=== PATIENT | female | born 2005 | race Caucasian/White ===

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

== ENCOUNTER 2024-12-31 14:38 | Outpatient (CLI) | payer MEDICAID, SELFPAY ==
--- OUTSIDE RECORDS SUMMARY | 2024-12-02 13:00 | XMS_ITS | Encounter Summary ---
Author Organization Healthcare Address [address] [place] [address] Care Team Providers Care Bottle Sorter Name Role Phone Linnea Ramirez APRN Primary Care Provider [phone] Reason for Visit * Reason Comments Confirmation of Here to discus s possible . Had a period on 10/17/24 and had spotting on 11/15 and 11/16. Encounter Details Date Type Department Care Team (Late st Contact Info) Description 12/02/2024 1:00 PM EDT Office Visit Obstetrics & Gynecology [address] [place] [address] Alexsandra Berrios APRN, DNP [address] [place] [address] Irregular menstruation, unspecified (Primary Dx); Family planning education, guidance, and counseling Social History Tobacco Use Types Packs/Day Years Used Date Smoking Tobacco: Never Passive Smoke Exposure: Never Smokeless Tobacco: Never Tobacco Cessation:Counseling Given: Not Answered Alcohol Use Standard Drinks/Week Comments Never 0 (1 standard drink = 0.6 oz pur e alcohol) Humiliation, Afraid, Rape, and Kick questionnair e Answer Date Recorded Within the last year, have y ou been afraid of your partner or ex-partner? No 07/22/2024 Within the last year, have y ou been humiliated or emotionally abused in other ways by your partner or ex-partner? No Within the last year, have y ou been kicked, hit, slapped, or otherwise physically hurt by your partner or ex-partner? No 07/22/2024 Within the last year, have y ou been raped or forced to have any kind of sexual activity by your partner or ex-partner? No 07/22/2024 Social Connection and Isolation Panel Answer Date Recorded In a typical week, how many times do you talk on the phone with family, friends, or neighbors? More than three times a week 02/12/2024 How often do you get togethe r with friends or relatives? More than three times a week 02/12/2024 How often do you attend chur or scientologist services? Never 02/12/2024 Do you belong to any clubs o r organizations such as muslim groups, unions, fraternal or athletic groups, or school groups? No 02/12/2024 How often do you attend meet ings of the clubs or organizations you belong to? Never 02/12/2024 Are you , , di vorced, , never , or living with a partner? Never 02/12/2024 AUDIT-C Answer Date Recorded Q1: How often do you have a drink containing alcohol? Never 02/12/2024 Q2: How many drinks containi ng alcohol do you have on a typical day when you are drinking? Patient does not drink Q3: How often do you have si x or more drinks on one occasion? Never 02/12/2024 Overall Financial Resource Strain (CARDIA) Answe r Date Recorded How hard is it for you to pa y for the very basics like food, housing, medical care, and heating? Not hard at all 02/12/2024 PHQ-2 Answer Date Recorded Patient Health Questionnaire-2 Score 0 12/02/2024 [facility] - Occupational Stress Questionnaire Answer Date Recorded Do you feel stress - tense, restless, nervous, or anxious, or unable to sleep at night because your mind is troubled all the time - these days? Not at all 02/12/2024 Exercise Vital Sign Answer Date Recorde d On average, how many days pe r week do you engage in moderate to strenuous exercise (like a brisk walk)? 3 days 02/12/2024 On average, how many minutes do you engage in exercise at this level? 30 min 02/12/2024 Hunger Vital Sign Answer Date Recorded Within the past 12 months, y ou worried that your food would run out before you got the money to buy more. Never true 07/22/19 25 Within the past 12 months, t he food you bought just didn't last and you didn't have money to get more. Never true 07/22/2024 PRAPARE - Transportation Answer Date Re corded In the past 12 months, has l ack of transportation kept you from medical appointments or from getting medications? No 10/2024 In the past 12 months, has l ack of transportation kept you from meetings, work, or from getting things needed for daily living? No 07/22/2024 Housing Stability Vital Sign Answer Facundo e Recorded In the last 12 months, was t here a time when you were not able to pay the mortgage or rent on time? No 01/21/2024 In the last 12 months, how many places have you lived? 1 01/21/2024 In the last 12 months, was t here a time when you did not have a steady place to sleep or slept in a assisted (including now)? No 01/21/2024 PHQ-9 Answer Date Recorded Patient Health Questionnaire-9 Score 1 08/06/2024 Housing Stability Vital Sign Answer Facundo e Recorded In the last 12 months, was t here a time when you were not able to pay the mortgage or rent on time? No 07/22/2024 In the past 12 months, how m any times have you moved where you were living? 0 07/22/2024 At any time in the past [address] [facility], were you homeless or living in a assisted (including now)? No 07/22/2024 Utilities Answer Date Recorded In the past 12 months has th e electric, gas, oil, or water company threatened to shut off services in your home? 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 Not on file Not on file Not on file documented as of this encounter Last Filed Vital Signs Vital Sign Reading Time Taken Comments Blood Pressure 112/74 12/02/2024 1:08 PM EDT Pulse 68 12/02/2024 1:08 PM EDT Temperature 36.9 C (98.4 F) 12/02/2024 1:08 PM EDT Respiratory Rate 14 12/02/2024 1:08 PM EDT Oxygen Saturation 100% 12/02/2024 1:08 PM EDT Inhaled Oxygen Concentration - - Weight 69.3 kg (152 lb 12.5 oz) 12/02/2024 1:08 PM EDT Height 162.6 cm (5' 4 ) 12/02/2024 1:08 PM EDT Body Mass Index 26.22 12/02/2024 1:08 PM EDT documented in this encounter Functional Status * Over the past 2 weeks, how often have you been bothered by any of the following problems? Question Answer Date of Assessment Author Little interest or pleasure in doing things Not at all 12/02/2024 1:09 PM EDT Asim Parks ra Feeling down, depressed, or hopeless Not at all 12/02/2024 1:09 PM EDT Asim Parks ra Patient Health Questionnaire-2 Score 0 12/02/2024 1:09 PM EDT Itzel Parks documented as of this encounter Miscellaneous Notes * Progress Notes - Alexsandra Berrios, MECHANICAL ENGINEERING OFFICER, DNP - 12/02/2024 1:00 PM EDT Gynecology Progress Note Subjective Lidia Park is a 19 y.o. 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 Here today for irregular menses. States she typically has very heavy bleeding each month for 5-7 days. This month only experienced 2 days of light brown spotting and she questioned if this was implantation bleeding. Also concerned for due to breast tenderness, fatigue, increased sense of smell, and increase in vaginal discharge. She had hCG drawn on 11/26 and results were negative. She reports her TSH and vitamin levels were also checked to which all were reportedly normal. States lastnormal menses started on 10/17. Is not TTC, but also not preventing. Is not on PNV at this time. Questions if not , if there is a hormonal imbalance present. Denies any diet/exercise/medication changes. No further questions or concerns today. LMP: 11/15/24 Cycles: regular monthly bleed 5 days Contraception: condoms intermittently Pap: @20 y/o Family hx: no known female cancers Review of Systems Constitutional: Positive for fatigue. HENT: Negative. Eyes: Negative. Respiratory: Negative. Cardiovascular: Negative. Gastrointestinal: Negative. Endocrine: Negative. Genitourinary: Positive for menstrual problem and vaginal discharge. Breast tenderness Musculoskeletal: Negative. Skin: Negative. Allergic/Immunologic: Negative. Neurological: Negative. Hematological: Negative. Psychiatric/Behavioral: Negative. Objective Visit Vitals BP 112/74 Pulse 68 Temp 36.9 ??C (98.4 ??F) Resp 14 Physical Exam Constitutional: Appearance: Normal appearance. HENT: Head: Normocephalic. Pulmonary: Effort: Pulmonary effort is normal. Neurological: Mental Status: She is alert and oriented to person, place, and time. Psychiatric: Mood and Affect: Mood normal. Behavior: Behavior normal. Vitals and nursing note reviewed. Exam conducted with a sales clerk supervisor present. Labs: UPT negative Assessment/Plan Assessment & Plan Irregular menstruation, unspecified Orders: hCG, Total Beta, Quantitative, Plasma; Future Family planning education, guidance, and counseling -Will follow hCG and trend appropriately. Discussed negative UPT in office today. Enc if not preventing , to start daily PNV w/folic acid supplementation. We discussed if hCG negative- enc to give body more time to have natural menses and if irregularity persists, could then consider further workup including blood work and/or STAFF ELECTRONIC WARFARE OFFICER US. -Answered all patient questions. Agreeable to POC. -RTC prn Time Spent: I personally spent a total of 25 minutes on this encounter. This time includes face to face with patient, counseling and discussion and/or coordination of care. documented in this encounter Plan of Treatment Not on file documented as of this encounter Procedures Procedure Name Priority Date/Time Associated Diagnosis Comments HCG, QUANTITATIVE Routine 12/02/2024 1:2 5 PM EDT Irregular menstruation, unspecified POCT , URINE Routine 12/02/2024 1:19 PM EDT Irregular menstruation, unspecified documented in this encounter Results * hCG, Total Beta, Quantitative, Plasma (12/02/2024 1:25 PM EDT) hCG, Total Beta <1 <5 mIU/mL 7:[address] [facility] Blood Venous blood specimen / Unknown Venipuncture / Unknown 12/02/2024 1:25 PM EDT 12/02/2024 6:[address] [facility] - 12/02/2024 7:00 PM EDT Patients: Normal Range Premenopausal Female < 5 mIU/mL Male < 3 mIU/mL Postmenopausal Female < 8 mIU/mL The Perri Elecsys hCG+beta assay is standardized to the 4th IS for Chorionic Gonadotropin. The combination of the specific monoclonal antibodies used in this assay recognizes the holo-hormone, nicked forms of hCG, the Beta-core Fragment and the free beta-subunit. Elevated hCG concentrations not associated with are found in patients with gestational trophoblastic disease and choriocarcinoma as well as germ cell, ovarian, bladder, pancreas, stomach, lung and liver tumors. Performed by the Perri electrochemiluminescent immunoassay which is traceable to the 4th International Standard for hCG (NIBSC 75/589). Results obtained with different test methods or kits cannot be used interchangeably. us Alexsandra Berrios APRN, DNP LAB BLOOD ORDERABLES Fi nal Result [facility] [address] [place] [address] * POCT Urine (12/02/2024 1:19 PM EDT) Urine - Point of Care Negative Negative - women after 7 weeks gestation and dilute urine (specific gravity <1.010) may have false negative results. Plasma HCG testing is recommended. Test performed at Point of Care. INTERNAL QC OK, PREG URINE Passed KIT LOT NUMBER, PREG URINE [id number] KIT EXPIRATION DATE, PREG URINE 05/24/2026 Urine Urine specimen obtained by clean catch procedure / Unknown 12/02/2024 1:19 PM EDT us Alexsandra Berrios APRN, DYLON POINT OF CARE TEST ENTE R/EDIT ORDERABLES Final Result documented in this encounter Visit Diagnoses Diagnosis Irregular menstruation, unspecified- Primary Family planning education, guidance, and counseling Other general counseling and advice for contraceptive management documented in this encounter Additional Health Concerns Assessment Noted Time PHQ-9 Depression Total Score: 1 08/06/19 25 3:53 PM EST A fall risk assessment has been complete d for the patient 12/02/2024 1:09 PM EDT A Body Mass Index follow-up plan has been documented for the patient 12/02/2024 1:26 PM EDT documented as of this encounter Care Teams Bottle Sorter Relationship Specialty Start Date End Date Linnea Ramirez APRN [address] [place] [address] PCP - General Family Medicine 01/28/24 documented as of this encounter
--- OUTSIDE RECORDS SUMMARY | 2024-12-16 12:40 | XMS_ITS | Encounter Summary ---
Author Organization Healthcare Address [address] [place] [address] Care Team Providers Care Pig Farm Manager Name Role Phone Linnea Ramirez APRN Primary Care Provider [phone] Reason for Visit * Reason Comments Hypoglycemia But increases after eating Restless Legs X 1.5 mo Anxiety Wants to increase do se Encounter Details Date Type Department Care Team (Late st Contact Info) Description 12/16/2024 12:40 PM EDT Office Visit [facility] [address] [place] [address] Linnea Ramirez APRN [address] [place] [address] Hypoglycemia (Primary Dx); Anxiety and depression; RLS (restless legs syndrome) Social History Tobacco Use Types Packs/Day Years Used Date Smoking Tobacco: Never Passive Smoke Exposure: Never Smokeless Tobacco: Never Alcohol Use Standard Drinks/Week Comments Never 0 [...] How often do you attend chur or tenriism services? Never 02/12/2024 Do you belong to any clubs o r organizations such as methodist groups, unions, fraternal or athletic groups, or [...] Recorded Patient Health Questionnaire-2 Score 0 12/02/2024 [facility] - Occupational Stress [...] place to sleep or slept in a fci (including now)? No 01/21/2024 PHQ-9 Answer Date [...] any time in the past 12 m [facility], were you homeless or living in a fci (including now)? No 07/22/2024 Utilities Answer Date Recorded In the past 12 months has th e [employer], gas, oil, or water [employer] threatened to shut off services in your home? 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 Not on file Not on file documented as of this encounter Last Filed Vital Signs Vital Sign Reading Time Taken Comments Blood Pressure 112/70 12/16/2024 12:30 PM EDT Pulse 74 12/16/2024 12:30 PM EDT Temperature 36.9 C (98.5 F) 12/16/2024 12:30 PM EDT Respiratory Rate 18 12/16/2024 12:3 0 PM EDT Oxygen Saturation 98% 12/16/2024 12: 30 PM EDT Inhaled Oxygen Concentration - - Weight 70.6 kg (155 lb 10.3 oz) 025 12:30 PM EDT Height 162.6 cm (5' 4 ) 12/16/2024 12:3 0 PM EDT Body Mass Index 26.72 12/16/2024 12:30 PM EDT documented in this encounter Functional Status * Calculated C-SSRS Risk Score (Lifetime/Recent) Answer Date of Assessment Author No Risk Indicated 12/16/2024 12:32 PM EDT Gia Snyder LPN * Question Answer Date of Assessment Author 1. Wish to be (Past 1 Month) No 12/16/2024 12:32 PM EDT Gia Arguello LPN 2. Non-Specific Active Suici good Thoughts (Past 1 Month) No 12/16/2024 12:32 PM EDT Leandro Arguello LPN 6. Suicidal Behavior (Lifetime) No 12:32 PM EDT Gia Arguello LPN documented as of this encounter Miscellaneous Notes * Progress Notes - Linnea Ramirez APRN - 12/16/2024 12:40 PM EDT Subjective Patient ID: Lidia Park is a 19 y.o. female. Chief Complaint Patient presents with Hypoglycemia But increases after eating Restless Legs X 1.5 mo Anxiety Wants to increase dose Patient c/o hypoglycemia. Says she felt off at work once and glucose was around 60 so she got a DexCom and has been monitoring glucose. Says she feels shaky when it drops. Can be up to 200 after eating and down to 50-60 while sleeping or in the AM. She notices symptoms mostly in the AM or mid afternoon. Says A1c was 5.3% a couple months ago at work. She doesn't usually eat breakfast, then will have lunch and dinner. Patient also c/o RLS at night when going to bed. Started 1-2 months ago. Tried a sock method that helped some initially, but not much now. Reports difficulty sleeping because legs feel like they constantly have to move. Says anxiety could contribute some because it hasn't been well controlled on current dose of Celexa. Reports family history of RLS in her mom, says she also struggles with insomnia. The following portions of the chart were reviewed this encounter and updated as appropriate: Tobacco Allergies Meds Problems Med Hx Surg Hx Fam Hx Current Medications[1] Review of Systems A 14 point ROS reviewed and is otherwise negative except as per HPI. Objective Visit Vitals BP 112/70 Pulse 74 Temp 36.9 ??C (98.5 ??F) Resp 18 Ht 1.626 m (5' 4 ) Wt 70.6 kg (155 lb 10.3 oz) LMP 12/15/2024 (Exact Date) SpO2 98% BMI 26.72 kg/m?? OB Status Unknown Smoking Status Never BSA 1.79 m?? Body mass index is 26.72 kg/m??. Physical Exam Vitals reviewed. Constitutional: General: She is not in acute distress. HENT: Head: Normocephalic. Mouth/Throat: Mouth: Mucous membranes are moist. Eyes: Conjunctiva/sclera: Conjunctivae normal. Cardiovascular: Rate and Rhythm: Normal rate. Pulmonary: Effort: Pulmonary effort is normal. Musculoskeletal: Right lower leg: No edema. Left lower leg: No edema. Skin: General: Skin is warm and dry. Neurological: Mental Status: She is alert and oriented to person, place, and time. Psychiatric: Mood and Affect: Mood normal. Behavior: Behavior normal. Assessment/Plan 1. Hypoglycemia (Primary) Discussed need to eat breakfast every AM as blood sugar is dropping before she eats lunch. Encouraged her to have a complex carb and protein with lunch, avoid a lot of simple carbs. May also need to add a mid afternoon snack. Follow-up if not improving. 2. Anxiety and depression Chronic, not currently well-controlled. Increase Celexa to 40 mg daily. Risks vs benefits and potential adverse effects of the medication discussed. Healthy coping mechanisms advised. Follow-up in 4-6 weeks if not improving. - citalopram (CeleXA) 40 MG tablet; Take 1 tablet by mouth daily. Dispense: 90 tablet; Refill: 3 3. RLS (restless legs syndrome) New issue, anxiety possibly contributing. Will treat anxiety as above. Instructed patient to reach out in 3-4 weeks if RLS symptoms not improving with better control of anxiety. If not improving we will trial ropinirole at bedtime. Linnea Ramirez APRN [1] Current Outpatient Medications: albuterol 108 (90 Base) MCG/ACT inhaler, Inhale 1 puff every 6 (six) hours if needed for wheezing or shortness of breath., Disp: 1 each, Rfl: 5 Beclomethasone Diprop HFA 40 MCG/ACT aerosol , Inhale 1 puff 2 (two) times a day., Disp: 8.7 g, Rfl: 5 citalopram (CeleXA) 20 MG tablet, TAKE 1 TABLET (20 MG) BY MOUTH 1 (ONE) TIME EACH DAY., Disp: 90 tablet, Rfl: 2 ergocalciferol 1.25 MG (93445 UT) capsule, Take 1 capsule (50,000 Units) by mouth., Disp: , Rfl: methenamine hippurate (Hiprex) 1 g tablet, Take 1 tablet (1 g) by mouth 2 (two) times a day., Disp:60 tablet, Rfl: 11 methocarbamol (Robaxin) 500 MG tablet, Start by taking 1 pill by mouth every night. Slowly increaseto 1 pill 2x/day as needed, with a maximum of 2 pills 3x/day., Disp: 180 tablet, Rfl: 11 ondansetron ODT (Zofran-ODT) 4 MG disintegrating tablet, DISSOLVE 1 TABLET IN MOUTH EVERY 6 HOURS NEEDED FOR NAUSEA, Disp: , Rfl: propranolol (Inderal) 10 MG tablet, TAKE 1 TABLET (10 MG) BY MOUTH 2 (TWO) TIMES A DAY, Disp: 180 tablet, Rfl: 2 documented in this encounter Plan of Treatment Not on file documented as of this encounter Visit Diagnoses Diagnosis Hypoglycemia- Primary Hypoglycemia, unspecified Anxiety and depression RLS (restless legs syndrome) Restless legs syndrome (RLS) documented in this encounter Additional Health Concerns Assessment Noted Time PHQ-9 Depression Total Score: 1 08/06/19 25 3:53 PM EST A fall risk assessment has been complete d for the patient 12/02/2024 1:09 PM EDT A Body Mass Index follow-up plan has been documented for the patient 12/16/2024 1:20 PM EDT documented as of this encounter Care Teams Pig Farm Manager Relationship Specialty Start Date End Date Linnea Ramirez APRN [address] [place] [id number] PCP - General Family Medicine 01/28/24 documented as of this encounter
--- OUTSIDE RECORDS SUMMARY | 2024-12-31 14:43 | XMS_ITS | Encounter Summary ---
Author Organization Healthcare Address [address] [place] [address] Care Team Providers Care Road Boss Name Role Phone Linnea Ramirez APRN Primary Care Provider [phone] Encounter Details Date Type Department Care Team (Latest Contact Info) Description 12/16/2024 Travel Social History Tobacco Use Types Packs/Day Years [...] week 02/12/2024 How often do you attend [facility] or sabianist services? Never 02/12/2024 Do you belong to any clubs o r organizations such as caodaism groups, unions, fraternal or athletic groups, or [...] Recorded Patient Health Questionnaire-2 Score 0 12/02/2024 [facility] of Occupat ional Health - Occupational Stress [...] place to sleep or slept in a detention (including now)? No 01/21/2024 PHQ-9 Answer Date [...] any time in the past 12 m [facility], were you homeless or living in a detention (including now)? No 07/22/2024 Utilities Answer Date Recorded In the past 12 months has e [employer], gas, oil, or water [employer] threatened to shut off services in your home? 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 Not on file Not on file documented as of this encounter Functional Status * Calculated C-SSRS [...] Arguello LPN documented as of this encounter Plan of Treatment Not on file documented as of this encounter Visit Diagnoses Not on filedocumented in this encounter Additional Health Concerns Assessment Noted Time PHQ-9 Depression Total Score: 1 08/06/19 25 3:53 PM EST A fall risk assessment has been complete d for the patient 12/02/2024 1:09 PM EDT A Body Mass Index follow-up plan has been documented for the patient 12/16/2024 1:20 PM EDT documented as of this encounter Care Teams Road Boss Relationship Specialty Start Date End Date Linnea Ramirez, ALTERATION WORKER [address] [place] [address] PCP - General Family Medicine 01/28/24 documented as of this encounter
--- OUTSIDE RECORDS SUMMARY | 2024-12-31 14:43 | XMS_ITS | Clinical Summary ---
Author Organization Healthcare Address [address] [place] [address] Care Team Providers Care Fisher Crab Name Role Phone Linnea Ramirez APRN Primary Care Provider [phone] Allergies Active Allergy Reactions Criticality Noted Date Comments [place] Other - please docum ent in the comment field Low 04/20/2021 Other Unknown - Patient st ates they do not know rxn details Low 04/20/2021 BANANAS Shellfish Allergy Anaphylaxis,Hives,Sh ortness of breath High 04/20/2021 Medications ondansetron ODT (Zofran-ODT) 4 MG disintegrating tablet DISSOLVE 1 TABLET IN MOUTH EVERY 6 HOURS NEEDED FOR NAUSEA 07/18/19 23 Active albuterol 108 (90 Base) MCG/ACT inhalerIndications :Moderate persistent asthma without complication Inhale 1 puff every 6 (six) hours if needed for wheezing or shortness of breath. 1 each 5 01/28/20 24 Active methenamine hippurate (Hiprex) 1 g tabletIndications: Recurrent UTI (urinary tract infection) Take 1 tablet (1 g) by mouth 2 (two) times a day. 60 tablet 02/26/20 24 025 Active methocarbamol (Robaxin) 500 MG tabletIndications: Pelvic floor dysfunction Start by taking 1 pill by mouth every night. Slowly increase to 1 pill 2x/day as needed, with a maximum of 2 pills 3x/day. 180 tablet 04/07/20 24 Active ergocalciferol 1.25 MG (81554 UT) capsule Take 1 capsule (50,000 Units) by mouth. 06/30/19 25 Active propranolol (Inderal) 10 MG tablet TAKE 1 TABLET (10 MG) BY MOUTH 2 (TWO) TIMES A DAY 180 tablet 2 09/30/19 25 Active Beclomethasone Diprop HFA 40 MCG/ACT aerosolIndications :Moderate persistent asthma without complication Inhale 1 puff 2 times a day. 10.6 g 11 12/20/19 25 Active citalopram (CeleXA) 40 MG tabletIndications: Anxiety and depression Take 1 tablet by mouth daily. 90 tablet 3 12/20/19 25 Active Beclomethasone Diprop HFA 40 MCG/ACT aerosolIndications :Moderate persistent asthma without complication Inhale 1 puff 2 (two) times a day. 8.7 g 5 01/28/20 24 025 Discontin ued(Reord er) citalopram (CeleXA) 20 MG tabletIndications: Anxiety and depression TAKE 1 TABLET (20 MG) BY MOUTH 1 (ONE) TIME EACH DAY. 90 tablet 2 10/16/19 25 025 Discontin ued(Dose adjustmen t) citalopram (CeleXA) 40 MG tabletIndications: Anxiety and depression Take 1 tablet by mouth daily. 90 tablet 3 12/17/19 25 025 Discontin ued(Reord er) Active Problems Problem Noted Date Diagnosed Date Pelvic floor dysfunction 04/07/2024 Recurrent UTI (urinary tract infection) 02/26/20 24 POTS (postural orthostatic tachycardia syndrome) 01/09/2024 Tachycardia, unspecified 09/24/2022 Asthma 04/20/2021 Anxiety and depression 07/25/2020 Vasovagal syncope 07/22/2020 Resolved Problems Problem Noted Date Diagnosed Date Resolved Date Nocturia 02/26/2024 07/24/2024 Encounters Date Type Department Care Team Description 12/16/2024 12:40 PM EDT Office Visit [facility] [address] [place] [address] Linnea Ramirez APRN Hypoglycemia (Primary Dx); Anxiety and depression; RLS (restless legs syndrome) 12/16/2024 Refill [facility] [address] [place] [address] Linnea Ramirez APRN Moderate persistent asthma without complication; Anxiety and depression 12/16/2024 Travel 12/09/2024 Travel 12/04/2024 Results Follow-Up [facility] [address] [place] [address] Alexsandra Berrios APRN, DNP 12/02/2024 1:00 PM EDT Office Visit [facility] [address] [place] [address] Alexsandra Berrios APRN, DNP Irregular menstruation, unspecified (Primary Dx); Family planning education, guidance, and counseling 12/02/2024 Travel 11/30/2024 Travel 11/26/2024 Telephone Obstetrics & Gynecology [address] [place] [address] Alexsandra Berrios APRN, DNP HCN - Patient Message 10/13/2024 Outside Procedure External Location [address] [place] [id number] Provider, [facility] 10/13/2024 Refill [facility] [address] [place] [address] Linnea Ramirez APRN Anxiety and depression from Last 3 Months Immunizations Immunization Administration Dates Next Due DTaP / Hep B / IPV 2004,2004, 005 DTaP / IPV 02/08/2009 DTaP, Unspecified 11/02/2005 HPV 9-Valent 12/23/2017,01/25/2016 Hep A, ped/adol, 2 dose 12/23/2017,07/05/2014 Influenza, injectable, quadr ivalent, preservative free 10/05/2023,03/07/2023 Influenza, live, intranasal 04/04/2011 MMR 02/08/2009,07/11/2005 Meningococcal B, Omv 04/06/2021,09/07/2020 Meningococcal MCV4O 09/07/2020,01/25/2016 Tdap 08/21/2022,01/25/2016 Varicella 02/08/2009 Family History Medical History Relation Name Comments Asthma Father Duran Gonzalez No Known Problems Father's Brother 1 Heart disease Father's Brother 2 Anthony Gonzalez No Known Problems Maternal Grandfather No Known Problems Maternal Grandmother Conversions - Other Mother Amalia Rhoades gastroin testinal disorder Heart disease Mother Amalia Rhoades Miscarriages / Stillbirths Mother Amalia Rhoades POTS Mother Amalia Soodz No Known Problems Mother's Brother 1 No Known Problems Mother's Brother 2 No Known Problems Mother's Sister Arthritis Paternal Grandfather Fady Gonzalez Heart disease Paternal Grandmother Divya Gonzalez No Known Problems Sister 1 No Known Problems Sister 2 No Known Problems Sister 3 No Known Problems Sister 4 Relation Name Status Comments Father Duran Gonzalez Alive Father's Brother 1 Alive Father's Brother 2 Anthony Gonzalez Alive Maternal Grandfather Maternal Grandmother Alive Mother Amalia Rhoades Alive Mother's Brother 1 Alive Mother's Brother 2 Alive Mother's Sister Alive Paternal Grandfather Fady Gonzalez Alive Paternal Grandmother Divya Gonzalez Alive Sister 1 Alive Sister 2 Alive Sister 3 Alive Sister 4 Alive Social History Tobacco Use Types Packs/Day Years [...] 02/12/2024 How often do you attend chur ch or latter-day services? Never 02/12/2024 Do you belong to any clubs o r organizations such as worship groups, unions, fraternal or athletic groups, or [...] Recorded Patient Health Questionnaire-2 Score 0 12/02/2024 [facility] - Occupational [...] place to sleep or slept in a [place] facility (including now)? No 01/21/2024 PHQ-9 Answer Date [...] any time in the past 12 m [facility], were you homeless or living in a [place] health [place] facility (including now)? 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 Not on file Not on file Last Filed Vital Signs Vital Sign Reading [...] Mass Index 26.72 12/16/2024 12:30 PM EDT Plan of Treatment Health Maintenance Due Date Last Done Comments [facility]-Infant/Child/Adol SDOH Screenings 2004 [facility]-Varicella Vaccines (2 of 2 - 2-dose childhood series) 05/02/2011 02/08/2009 [facility]-Pneumococcal Vaccine: Pediatrics (0 to 5 Years) and At-Risk Patients (6 to 49 Years) (1 of 2 - PCV) 2023 [facility]-BIJOR-24 Vaccine ( - season) 2024 05/22/2021, 11/03/2020, 10/13/2020 [facility]- SDOH Screenings 01/19/2025 [facility]-Adult SDOH Screenings 01/19/2025 07/22/2024 [facility]-Chlamydia and Gonorrhea Screening 02/09/2025 02/10/2024, 02/10/2024, 07/22/2023, Additional history exists [facility]-Influenza Vaccine (#1) 02/15/202503/18, 10/05/2023, 03/07/2023, Additional history exists [facility]-Depression Screening 12/02/2025 12/02/2024, 07/19 [facility]-DTaP,Tdap,and Td Vaccines (8 - Td or Tdap) 08/21/2032 08/21/2022, 01/25/2016, 02/08/2009, Additional history exists [facility]-Zoster Vaccines (1 of 2) 2054 02/08/2009 [facility]-Hepatitis B Vaccines Completed 005, 2004, 2004 [facility]-IPV Vaccines Completed 02/08/2009, , 2004, Additional history exists HPV Vaccines Completed 12/23/2017, 01/25/2016 [facility]-Hepatitis A Vaccines Completed 12/23/2017, 06/17 [facility]-HIV Screening Completed 09/18/2023 [facility]-Hepatitis C Screening Completed 09/18/2023 [facility]-Obesity Intervention Completed 025, 12/02/2024, 08/06/2024, Additional history exists [facility]-HIB Vaccines Aged Out No longer e ligible based on patient's age to complete this topic [facility]-Rotavirus Vaccines Aged Out No lo nger eligible based on patient's age to complete this topic Procedures Procedure Name Priority Date/Time Associated Diagnosis Comments HCG, QUANTITATIVE Routine 12/02/2024 1:2 5 PM EDT Irregular menstruation, unspecified POCT , URINE Routine 12/02/2024 1:19 PM EDT Irregular menstruation, unspecified US PELVIS TRANSABDOMINAL 10/13/2024 11:28 AM EDT CHLAMYDIA TRACHOMATIS DNA BY PCR Routine 02/10/2024 2:27 PM EDT Screening examination for STD (sexually transmitted disease) HEPATITIS C ANTIBODY - ED W/REFLEX TO HCV QUANT PCR STAT 09/18/2023 3:55 PM EDT ED HIV 1/2 ANTIBODY/ANTIGEN SCREEN WITH REFLEX TO HIV I/II DIFFERENTIATION STAT 09/18/2023 3:55 PM EDT from Last 3 Months or Most Recently Relevant to Health Maintenance Results * hCG, Total Beta, Quantitative, Plasma (12/02/2024 1:25 PM EDT) hCG, Total Beta <1 <5 mIU/mL 7:00 PM EDT [facility] Blood Venous blood specimen / Unknown Venipuncture / Unknown 12/02/2024 1:25 PM EDT 12/02/2024 6:31 PM EDT Narrative [facility] - 12/02/2024 7:00 PM EDT Patients: [...] methods or kits cannot be used interchangeably. Alexsandra Berrios APRN, DNP LAB BLOOD [place] [address] * POCT Urine (12/02/2024 1:19 PM EDT) [facility] Urine - Point of Care Negative Negative [...] procedure / Unknown 12/02/2024 1:19 PM EDT Alexsandra Berrios APRN, DNP POINT OF CARE TEST ENTE R/EDIT ORDERABLES Final Result * US Pelvis Transabdominal (10/13/2024 11:28 AM EDT) Anatomical Region Laterality Modality Pelvis Ultrasound 10/13/2024 11:2 8 AM EDT Narrative 10/14/2024 10:17 AM EDT [address] [address] Name: LIZ GONZALEZ Exam Date: 10/13/2024 : 2005 Age 19 years Gender: F Physician: ISABELLE BRITO Facility: [facility] Facility HSV: Outpatient Exam: COMPLETE PELVIS US EXAM: US PELVIS DATE: 10/13/2024 10:54 AM CDT INDICATION: pelvic/perineal pain TECHNIQUE: Wiseman scale sonographic evaluation of the pelvis was performed transabdominal with color Doppler or Duplex imaging. COMPARISON: Ultrasound from 08/03/2024 FINDINGS: Limited examination due to bowel gas. Uterus: 5.8 x 4.1 x 4.6 cm. There is no evidence of uterine fibroids. The cervix is unremarkable. The endometrium is centrally located with homogeneously hyperechoic appearance measuring 10.7 mm. The right ovary measures 2.6 x 2.2 x 2.3 cm and the left ovary measures 4.6 x 4.4 x 2.2 cm. Normal pulse-wave and color Doppler or duplex ovaries. A 1.9 x 1.1 x 1.6 cm right ovarian cyst, previously 3.9 x 3.4 x 2.8 cm. There is no free fluid in the cul-de-sac. The bladder is distended and unremarkable. IMPRESSION: Interval decrease in size of the right ovarian cyst. Electronically signed by: Eva Camacho MD 10/14/2024 10:14 AM EDT Dictated By: Eva Camacho Transcribed By: Transcribed On: 10/13/2024 11:54 AM Electronically signed by: Eva Camacho 10/13/2024 Thank you for referring LIZ GONZALEZ to [facility]. Legally authenticated by LAUREN BOURNE 2024-10-13 11:54:15 Procedure Note Provider, [facility] - 10/14/2024 [place] [address] Name: LIZ GONZALEZ Exam Date: 10/13/2024 : 2005 Age 19 years Gender: F Physician: ISABELLE BRITO Facility: [facility] Facility HSV: Outpatient Exam: COMPLETE PELVIS US EXAM: US PELVIS DATE: 10/13/2024 10:54 AM CDT INDICATION: pelvic/perineal pain TECHNIQUE: Wiseman scale sonographic evaluation of the pelvis wasperformed transabdominal with color Doppler or Duplex imaging. COMPARISON: Ultrasound from 08/03/2024 FINDINGS: Limited examination due to bowel gas. Uterus: 5.8 x 4.1 x 4.6 cm. There is no evidence of uterine fibroids. The cervix is unremarkable. The endometrium is centrally located with homogeneously hyperechoicappearance measuring 10.7 mm. The right ovary measures 2.6 x 2.2 x 2.3 cm and the left ovary measures4.6 x 4.4 x 2.2 cm. Normal pulse-wave and color Doppler or duplex ovaries. A 1.9x 1.1 x 1.6 cm right ovarian cyst, previously 3.9 x 3.4 x 2.8 cm. There is no free fluid in the cul-de-sac. The bladder is distended and unremarkable. IMPRESSION: Interval decrease in size of the right ovarian cyst. Electronically signed by: Eva Camacho MD 10/14/2024 10:14 AM EDT Dictated By: Eva Camacho Transcribed By: Transcribed On: 10/13/2024 11:54 AM Electronically signed by: Eva Camacho 10/13/2024 Thank you for referring LIZ GONZALEZ to [facility]. Legally authenticated by LAUREN BOURNE 2024-10-13 11:54:15 us Generic [place] Provider IMG US PROCEDURES Fi nal Result * Chlamydia trachomatis DNA by PCR (02/10/2024 2:27 PM EDT) Chlamydia trachomatis DNA PCR Result Not Detected Not Detected 02/13/2024 1:43 PM EDT [facility] Urine Urine specimen / Unknown Non-blood Collection / Unknown 02/10/2024 2:27 PM EDT 02/10/2024 6:34 PM EDT Narrative [facility] - 02/13/2024 1:43 PM EDT This test is performed by the [employer] instrument for Real Time PCR C. trachomatis and N. gonorrhea. This test is FDA approved for use with endocervical, vaginal, and urine specimens. This test is used for clinical purposes. It should not be regarded as invesigational or for research. The [facility] Clinical Microbiology Laboratory is certified under the Clinical Laboratory Improvement Amendments of 1988 (CLIA-88) as qualified to perform high complexity clinical laboratory testing. Alexsandra Berrios APRN, [facility] LAB MICROBIOLOGY - GENE RAL ORDERABLES Final Result Performing Organization Address [facility] Co de Phone Number [facility] [address] [place] [address] * ED HIV 1/2 Antibody/Antigen Screen w/Reflex to HIV 1/2 Differentiation (09/18/2023 3:55 PM EDT) Pathologist [facility] HIV 1 & 2 Antibody/Antigen Screen Non Reactive Non Reactive 09/18/2023 4:53 PM EDT [facility] Comment:Screening for HIV 1 & 2 antibodies, and P24 antigen is NONREACTIVE. No confirmatory testing is required. Blood Venous blood specimen / Unknown Venipuncture / Unknown 09/18/2023 3:55 PM EDT 09/18/2023 4:11 PM EDT Marissa Nathan MD LAB BLOOD ORDERABLES Final R esult Performing Organization Address [facility] Co de Phone Number [facility] [address] [place] [address] * Hepatitis C Antibody - ED (09/18/2023 3:55 PM EDT) Hepatitis C Antibody Negative Negative 09/18/2023 4:51 PM EDT [facility] Blood Venous blood specimen / Unknown Venipuncture / Unknown 09/18/2023 3:55 PM EDT 09/18/2023 4:11 PM EDT Marissa Nathan MD LAB BLOOD ORDERABLES Final R esult Performing Organization Address [facility] Co de Phone Number [facility] [address] [place] [address] from Last 3 Months or Most Recently Relevant to Health Maintenance Insurance [facility] MEDICAID Care Teams Fisher Crab Relationship Specialty Start Date End Date Linnea Ramirez APRN [address] [place] [address] PCP - General Family Medicine 01/28/24
--- OUTSIDE RECORDS SUMMARY | 2024-12-31 14:43 | XMS_ITS | Encounter Summary ---
Author Organization Healthcare Address [address] [place] [address] Care Team Providers Care Public Affairs Manager Name Role Phone Linnea Ramirez APRN Primary Care Provider [phone] Encounter Details Date Type Department Care Team (Late st Contact Info) Description 03/26/2024 Outside Procedure External Location [address] [place] [address] Provider, [facility] [place] Social History Tobacco Use Types Packs/Day Years Used Date Smoking Tobacco: Never Passive Smoke Exposure: Never Smokeless Tobacco: Never Alcohol Use Standard Drinks/Week Comments Never 0 (1 standard drink = 0.6 oz pur e alcohol) Humiliation, Afraid, Rape, and Kick questionnair e Answer Date Recorded Within the last year, have y ou been afraid of your partner or ex-partner? No 01/21/2024 Within the last year, have y ou been humiliated or emotionally abused in other ways by your partner or ex-partner? No Within the last year, have y ou been kicked, hit, slapped, or otherwise physically hurt by your partner or ex-partner? No 01/21/2024 Within the last year, have y ou been raped or forced to have any kind of sexual activity by your partner or ex-partner? No 01/21/2024 Social Connection and Isolation Panel Answer Date Recorded In a typical week, how many times do you talk on the phone with family, friends, or neighbors? More than three times a week 02/12/2024 How often do you get togethe r with friends or relatives? More than three times a week 02/12/2024 How often do you attend chur ch or zoroastrianism services? Never 02/12/2024 Do you belong to any clubs o r organizations such as adventism groups, unions, fraternal or athletic groups, or [...] Answer Date Recorded Patient Health Questionnaire-2 Score 1 01/28/2024 [facility] - Occupational Stress Questionnaire Answer Date Recorded [...] the money to buy more. Never true 01/21/20 24 Within the past 12 months, t he food you bought just didn't last and you didn't have money to get more. Never true 01/21/2024 PRAPARE - Transportation Answer Date Re corded In the past 12 months, has l ack of transportation kept you from medical appointments or from getting medications? No 4 In the past 12 months, has l ack of transportation kept you from meetings, work, or from getting things needed for daily living? No 01/21/2024 Housing Stability Vital Sign Answer Facundo e [...] place to sleep or slept in a mcc (including now)? No 01/21/2024 Utilities Answer Date Recorded In the past 12 months has th e electric, gas, oil, or water company threatened to shut off services in your home? 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 Not on file documented as of this encounter Plan of Treatment Not on file documented as of this encounter Procedures Procedure Name Priority Date/Time Associated Diagnosis Comments XR CHEST 2 VIEWS 03/26/2024 12:1 1 PM EDT documented in this encounter Results * XR Chest 2 Views (03/26/2024 12:11 PM EDT) Anatomical Region Laterality Modality Chest Digital Radiogra phy 03/26/2024 12:1 1 PM EDT Narrative 03/26/2024 1:01 PM EDT [id number] [place] [address] Name: LIZ GONZALEZ Exam Date: 03/26/2024 : 2005 Age 18 years Gender: F Physician: CARLOS EDUARDO SMITH Facility: [facility] Facility HSV: Outpatient Exam: CHEST 2 VIEWS EXAM DESCRIPTION: CHEST 2 VIEWS CLINICAL HISTORY: 18 years Female, dyspnea COMPARISON: 02/08/2022 FINDINGS: Dextroscoliosis of the thoracic spine. The lungs are clear. The cardiomediastinal silhouette is unremarkable. IMPRESSION: No radiographic evidence of acute disease. Electronically signed by:Colleen Marie MD03/26/2024 12:58 PM EDT RP Dictated By: Colleen Marie Transcribed By: Transcribed On: 03/26/2024 12:45 PM Electronically signed by: Colleen Marie 03/26/2024 Thank you for referring LIZ GONZALEZ to [facility]. Legally authenticated by SELINA SARGENT 2024-03-26 12:45:00 Procedure Note Provider, [facility] - 03/26/2024 [place] [address] Name: LIZ GONZALEZ Exam Date: 03/26/2024 : 2005 Age 18 years Gender: F Physician: CARLOS EDUARDO SMITH Facility: [facility] Facility HSV: Outpatient Exam: CHEST 2 VIEWS EXAM DESCRIPTION: CHEST 2 VIEWS CLINICAL HISTORY: 18 years Female, dyspnea COMPARISON: 02/08/2022 FINDINGS: Dextroscoliosis of the thoracic spine. The lungs are clear.The cardiomediastinal silhouette is unremarkable. IMPRESSION: No radiographic evidence of acute disease. Electronically signed by:Colleen Marie MD03/26/2024 12:58 PM EDT RP Dictated By: Colleen Marie Transcribed By: Transcribed On: 03/26/2024 12:45 PM Electronically signed by: Colleen Marie 03/26/2024 Thank you for referring LIZ GONZALEZ to [facility]. Legally authenticated by SELINA SARGENT 2024-03-26 12:45:00 [facility] [place] Provider IMG XR PROCEDURES Fi nal Result documented in this encounter Visit Diagnoses Not on filedocumented in this encounter Additional Health Concerns Assessment Noted Time A fall risk assessment has been complete d for the patient 02/10/2024 2:03 PM EDT A Body Mass Index follow-up plan has been documented for the patient 02/27/2024 1:22 PM EDT documented as of this encounter Care Teams Public Affairs Manager Relationship Specialty Start Date End Date Linnea Ramirez APRN [address] [place] [address] PCP - General Family Medicine 01/28/24 documented as of this encounter
--- OUTSIDE RECORDS SUMMARY | 2024-12-31 14:43 | XMS_ITS | Encounter Summary ---
Author Organization Healthcare Address [address] [place] [address] Care Team Providers Care Portal Administrator Name Role Phone Linnea Ramirez APRN Primary Care Provider [phone] Encounter Details Date Type Department Care Team (Latest Contact Info) Description 11/30/2024 Travel Social History Tobacco Use Types Packs/Day [...] week 02/12/2024 How often do you attend [facility] or rastafarian services? Never 02/12/2024 Do you belong to any clubs o r organizations such as jain groups, unions, fraternal or athletic groups, or [...] Date Recorded Patient Health Questionnaire-2 Score 0 08/06/2024 [facility] - Occupational [...] place to sleep or slept in a residential (including now)? No 01/21/2024 PHQ-9 Answer Date [...] any time in the past 12 m [facility], were you homeless or living in a residential (including now)? No 07/22/2024 Utilities Answer Date Recorded In the past 12 months has e eTelemetry, gas, oil, or water [employer] threatened to shut off services in your home? 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 Not on file documented as of this encounter Plan of Treatment Not on file documented as of this encounter Visit Diagnoses Not on filedocumented in this encounter Additional Health Concerns Assessment Noted Time PHQ-9 Depression Total Score: 1 08/06/19 25 3:53 PM EST A fall risk assessment has been complete d for the patient 08/06/2024 3:52 PM EST A Body Mass Index follow-up plan has been documented for the patient 08/06/2024 4:15 PM EST documented as of this encounter Care Teams Portal Administrator Relationship Specialty Start Date End Date Linnea Ramirez APRN [address] [place] [address] PCP - General Family Medicine 01/28/24 documented as of this encounter
--- OUTSIDE RECORDS SUMMARY | 2024-12-31 14:43 | XMS_ITS | Encounter Summary ---
Author Organization Healthcare Address [address] [place] [address] Care Team Providers Care Bicycle I Assembler Name Role Phone uJliette Young MD Primary Care Provider [phone] Linnea Ramirez APRN Primary Care Provider [phone] Encounter Details Date Type Department Care Team (Late st Contact Info) Description 05/28/2023 Community [facility] [address] [phone] Hermelindo Elder MD [facility] [place] [address] POTS (postural orthostatic tachycardia syndrome) (Primary Dx) Social History Tobacco Use Types Packs/Day Years Used Date Smoking Tobacco: Never Passive Smoke Exposure: Never Smokeless Tobacco: Never Alcohol Use Standard Drinks/Week Comments Never 0 (1 standard drink = 0.6 oz pur e alcohol) PHQ-2 Answer Date Recorded Patient Health Questionnaire-2 Score 0 09/24/2022 PHQ-2A Answer Date Recorded Patient Health Questionnaire-2 Score 0 09/24/2022 Comments Unknown Sex and Gender Information Value Date Recorded Sex Assigned at Not on file Legal Sex Female 8:06 PM EDT Gender Identity Not on file Sexual Orientation Not on file 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
--- OUTSIDE RECORDS SUMMARY | 2024-12-31 14:43 | XMS_ITS | Encounter Summary ---
Author Organization Healthcare Address [address] [place] [address] Care Team Providers Care Bar And Filler Assembler Name Role Phone Linnea Ramirez APRN Primary Care Provider [phone] Reason for Visit * Reason Onset Date Comments HCN - Patient Message 11/26/2024 Encounter Details Date Type Department Care Team (Late st Contact Info) Description 11/26/2024 Telephone Obstetrics & Gynecology [address] [place] [address] Alexsandra Berrios, FACTORY MAINTENANCE TECHNICIAN, DNP [address] [place] [address] HCN - Patient Message Social History Tobacco Use Types Packs/Day Years [...] How often do you attend chur or voodoo services? Never 02/12/2024 Do you belong to any clubs o r organizations such as roman catholic groups, unions, fraternal or athletic groups, or [...] Recorded Patient Health Questionnaire-2 Score 0 12/02/2024 [facility] of Occupat ional [facility] - Occupational Stress Questionnaire Answer Date Recorded [...] place to sleep or slept in a care home (including now)? No 01/21/2024 PHQ-9 Answer Date [...] any time in the past 12 m [facility], were you homeless or living in a care home (including now)? 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 Best contact number: [phone] (home) Optimal time of day to reach caller: ANYTIME Additional comments/information from caller: Note: Please do not reply to this message. Follow-up communication and further actions as a result of this message need to be communicated with the patient directly, if the patient is not active onMyChart. If the patient is active on MyChart, they will receive notification of the communication/outcome via [employer]. * Telephone Encounter - Wilson Bassett - 11/26/2024 8:56 AM EDT Same Day Appt/Overbook Request Reason for Call: pt is calling to be seen today , she thinks she may be in the early stages of , and is having some symptoms and is wanting to be seen please Best contact number: [phone] (mobile) Optimal time of day to reach caller: ANYTIME after 12 please Additional comments/information from caller: None Note: Please do not reply to this message. Follow-up communication and further actions as a result of this message need to be communicated with the patient directly, if the patient is not active onMyChart. If the patient is active on MyChart, they will receive notification of the communication/outcome via MyChart. documented in this encounter Plan of Treatment [...] documented as of this encounter Care Teams Bar And Filler Assembler Relationship Specialty Start Date End Date Linnea Ramirez APRN [address] [place] [phone] PCP - General Family Medicine 01/28/24 documented as of this encounter
--- OUTSIDE RECORDS SUMMARY | 2024-12-31 14:43 | XMS_ITS | Encounter Summary ---
Author Organization Healthcare Address [address] [place] [address] Care Team Providers Care Olericulture Professor Name Role Phone Linnea Ramirez APRN Primary Care Provider [phone] Encounter Details Date Type Department Care Team (Late st Contact Info) Description 12/04/2024 Results Follow-Up Obstetrics & Gynecology [address] [place] [address] Alexsandra Berrios APRN, DNP [address] [place] [address] Social History Tobacco Use Types Packs/Day Years [...] often do you attend chur ch or jainism services? 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
--- OUTSIDE RECORDS SUMMARY | 2024-12-31 14:43 | XMS_ITS | Encounter Summary ---
Author Organization Healthcare Address [address] [place] [address] Care Team Providers Care Bleach Range Operator Name Role Phone Linnea Ramirez APRN Primary Care Provider [phone] Encounter Details Date Type Department Care Team (Latest Contact Info) Description 12/02/2024 Travel Social History Tobacco Use Types Packs/Day [...] week 02/12/2024 How often do you attend [facility] or uatsdin services? Never 02/12/2024 Do you belong to any clubs o r organizations such as islam groups, unions, fraternal or athletic groups, or [...] Recorded Patient Health Questionnaire-2 Score 0 12/02/2024 [facility] of Occupat ional Health - Occupational Stress [...] place to sleep or slept in a fpc (including now)? No 01/21/2024 PHQ-9 Answer Date [...] any time in the past 12 m [facility], were you homeless or living in a fpc (including now)? No 07/22/2024 Utilities Answer Date Recorded In the past 12 months has e [employer], gas, oil, or water [employer] threatened to shut off services in your home? 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
--- OUTSIDE RECORDS SUMMARY | 2024-12-31 14:43 | XMS_ITS | Encounter Summary ---
Author Organization Healthcare Address [address] [place] [address] Care Team Providers Care Alarm Mechanism Adjuster Name Role Phone Linnea Ramirez APRN Primary Care Provider [phone] Encounter Details Date Type Department Care Team (Late st Contact Info) Description 10/13/2024 Outside Procedure External Location [address] [place] [address] Provider, [facility] [place] Social History Tobacco Use Types Packs/Day Years [...] often do you attend chur ch or faith services? Never 02/12/2024 Do you belong to any clubs o r organizations such as mu-ism groups, unions, fraternal or athletic groups, or [...] Recorded Patient Health Questionnaire-2 Score 0 08/06/2024 [facility] - Occupational Stress Questionnaire Answer Date [...] place to sleep or slept in a prison (including now)? No 01/21/2024 PHQ-9 Answer Date [...] any time in the past 12 m [facility], were you homeless or living in a prison (including now)? 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 Not on file documented as of this encounter Plan of Treatment Not on file documented as of this encounter Procedures Procedure Name Priority Date/Time Associated Diagnosis Comments US PELVIS TRANSABDOMINAL 10/13/2024 11:28 AM EDT documented in this encounter Results * US Pelvis Transabdominal (10/13/2024 11:28 AM EDT) Anatomical Region Laterality Modality Pelvis Ultrasound 10/13/2024 11:2 8 AM EDT Narrative 10/14/2024 10:17 [place] [address] Name: LIZ GONZALEZ Exam Date: 10/13/2024 : 2005 Age 19 years Gender: F Physician: ISABELLE BRITO Facility: PS[facility]ATRIC Facility HSV: Outpatient Exam: COMPLETE PELVIS US [...] Thank you for referring LIZ GONZALEZ to [facility]. Legally authenticated by LAUREN BOURNE 2024-10-13 11:54:15 Procedure Note Provider, [facility] [place] - 10/14/20[address] [id number] Name: LIZ GONZALEZ Exam Date: 10/13/2024 : 2005 Age 19 years Gender: F Physician: ISABELLE BRITO Facility: PSYCHIATRIC Facility HSV: Outpatient Exam: COMPLETE PELVIS US [...] Thank you for referring LIZ GONZALEZ to [facility]. Legally authenticated by LAUREN BOURNE 2024-10-13 11:54:15 us Generic [place] Provider IMG US PROCEDURES Fi nal Result documented in this [...] documented as of this encounter Care Teams Alarm Mechanism Adjuster Relationship Specialty Start Date End Date Linnea Ramirez APRN [address] [place] [address] PCP - General Family Medicine 01/28/24 documented as of this encounter
--- OUTSIDE RECORDS SUMMARY | 2024-12-31 14:43 | XMS_ITS | Encounter Summary ---
Author Organization Healthcare Address [address] [place] [place] [address] Care Team Providers Care Brake Repairer Railroad Name Role Phone Linnea Ramirez APRN Primary Care Provider [phone] Encounter Details Date Type Department Care Team (Late st Contact Info) Description 08/03/2024 Outside Procedure External Location [address] [place] [address] Provider, [facility] [place] Social History Tobacco Use Types Packs/Day Years [...] often do you attend chur ch or christianity services? 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 Question Answer Date of Assessment Author Little interest or pleasure in doing things Not at all 08/06/2024 3:53 PM Lynda Vargas Feeling down, depressed, or hopeless Not at all 08/06/2024 3:53 PM Lynda Vargas Patient Health Questionnaire -2 Score 0 08/06/2024 3:53 PM EST Saqib, Lynda Y * Question Answer Date of Assessment Author Trouble falling or staying asleep, or sleeping too much Not at all 08/06/2024 3:53 PM EST Rahel Cerrato Feeling tired or having carrie le energy Not at all 08/06/2024 3:53 PM EST Lynda Cerrato Poor appetite or overeating Several days 08/06/2024 3: 53 PM EST Lynda Cerrato Feeling bad about yourself - or that you are a failure or have let yourself or your family down Not at all 08/06/2024 3:53 PM EST Lynda Hines Trouble concentrating on thi ngs, such as reading the newspaper or watching television Not at all 08/06/2024 3:53 PM EST Lynda Cerrato Moving or speaking so slowly that other people could have noticed? Or the opposite - being so fidgety or restless that you have been moving around a lot more than usual. Not at all 08/06/2024 3:53 PM EST Lynda Cerrato Thoughts that you would be better off or hurting yourself in some way Not at all 08/06/2024 3:53 PM EST Lynda Cerrato Patient Health Questionnaire -9 Score 1 08/06/2024 3:53 PM EST Lynda Cerrato documented as of this encounter Plan of Treatment Not on file documented as of this encounter Procedures Procedure Name Priority Date/Time Associated Diagnosis Comments US PELVIS TRANSABDOMINAL 08/03/2024 2:46 PM EST documented in this encounter Results * US Pelvis Transabdominal (08/03/2024 2:46 PM EST) Anatomical Region Laterality Modality Pelvis Ultrasound 08/03/2024 2:46 PM EST Narrative 08/04/2024 4:02 [place] [address] Name: LIZ GONZALEZ Exam Date: 08/03/2024 : 2005 Age 19 years Gender: F Physician: ISABELLE BRITO Facility: [facility] Facility HSV: Outpatient Exam: COMPLETE PELVIS US ULTRASOUND OF THE PELVIS HISTORY:rlq pain TECHNIQUE: Transabdominal imaging was performed of the pelvis, using both grayscale and color/spectral Doppler technique. COMPARISON: None FINDINGS: Uterus: 5.5 x 3.7 x 3.9 cm in longitudinal, AP, and transverse diameters respectively. Endometrium: 8.6 mm in thickness which is within normal limits. Grossly normal in appearance. Myometrium: Grossly normal in appearance Cervix: Normal in appearance Right ovary: 5.6 x 3.9 x 3.8 cm in orthogonal diameters. 4 cm right adnexal cyst appears simple and likely ovarian in nature. Left ovary: 4.7 x 4.9 x 4.7 cm in orthogonal diameters. No abnormalities of the left ovary are identified. Bladder: No definite abnormality Free fluid: None IMPRESSION: * No acute sonographic abnormality seen within the pelvis. * 4 cm right adnexal cyst appears simple and likely ovarian in nature. No follow-up imaging is necessary. Electronically signed by: Love Nair DO 08/04/2024 03:58 PM [facility] Dictated By: LOVE NAIR Transcribed By: Transcribed On: 08/03/2024 3:09 PM Electronically signed by: LOVE NAIR 08/03/2024 Thank you for referring LIZ GONZALEZ to [facility]. Legally authenticated by KOREY ALEMAN 2024-08-03 15:09:17 Procedure Note Provider, [facility] - 08/04/2024 [place] [address] Name: LIZ GONZALEZ Exam Date: 08/03/2024 : 2005 Age 19 years Gender: F Physician: ISABELLE BRITO Facility: [facility] Facility HSV: Outpatient Exam: COMPLETE PELVIS US ULTRASOUND OF THE PELVIS HISTORY:rlq pain TECHNIQUE: Transabdominal imaging was performed of the pelvis, usingboth grayscale and color/spectral Doppler technique. COMPARISON: None FINDINGS: Uterus: 5.5 x 3.7 x 3.9 cm in longitudinal, AP, and transverse diameters respectively. Endometrium: 8.6 mm in thickness which is within normal limits. Grossly normal in appearance. Myometrium: Grossly normal in appearance Cervix: Normal in appearance Right ovary: 5.6 x 3.9 x 3.8 cm in orthogonal diameters. 4 cm right adnexal cyst appears simple and likely ovarian in nature. Left ovary: 4.7 x 4.9 x 4.7 cm in orthogonal diameters. No abnormalities of the left ovary are identified. Bladder: No definite abnormality Free fluid: None IMPRESSION: * No acute sonographic abnormality seen within the pelvis. * 4 cm right adnexal cyst appears simple and likely ovarian in nature.No follow-up imaging is necessary. Electronically signed by: Love Nair DO 08/04/2024 03:58 PM EST RP Dictated By: LOVE NAIR Transcribed By: Transcribed On: 08/03/2024 3:09 PM Electronically signed by: LOVE NAIR 08/03/2024 Thank you for referring LIZ GONZALEZ to [facility]. Legally authenticated by KOREY ALEMAN 2024-08-03 15:09:17 us Generic [place] Provider IMG US PROCEDURES Fi nal Result documented in this encounter Visit Diagnoses Not on filedocumented in this encounter Additional Health Concerns Assessment Noted Time A fall risk assessment has been complete d for the patient 06/16/2024 1:13 PM EST A Body Mass Index follow-up plan has been documented for the patient 07/24/2024 11:14 AM EST documented as of this encounter Care Teams Brake Repairer Railroad Relationship Specialty Start Date End Date Linnea Ramirez APRN [address] [place] [id number] PCP - General Family Medicine 01/28/24 documented as of this encounter
--- OUTSIDE RECORDS SUMMARY | 2024-12-31 14:43 | XMS_ITS | Encounter Summary ---
Author Organization Healthcare Address [address] [place] [address] Care Team Providers Care Part Time Name Role Phone Linnea Ramirez APRN Primary Care Provider [phone] Encounter Details Date Type Department Care Team (Latest Contact Info) Description 12/09/2024 Travel Social History Tobacco Use Types Packs/Day [...] week 02/12/2024 How often do you attend [facility] or roman catholic services? Never 02/12/2024 Do you belong to any clubs o r organizations such as mosque groups, unions, fraternal or athletic groups, or [...] Recorded Patient Health Questionnaire-2 Score 0 12/02/2024 [facility] of Occupat ional Health - [...] place to sleep or slept in a snf (including now)? No 01/21/2024 PHQ-9 Answer Date [...] any time in the past 12 m [facility], were you homeless or living in a snf (including now)? No 07/22/2024 Utilities Answer Date Recorded In the past 12 months has e [employer], gas, oil, or water [employer] threatened to shut off services in your home? 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
--- OUTSIDE RECORDS SUMMARY | 2024-12-31 14:43 | XMS_ITS | Encounter Summary ---
Author Organization Healthcare Address [address] [place] [address] Care Team Providers Care Elevator Attendant Name Role Phone Linnea Ramirez APRN Primary Care Provider [phone] Reason for Visit * Reason Onset Date Comments Med Refill 12/16/2024 Encounter Details Date Type Department Care Team (Late st Contact Info) Description 12/16/2024 Refill [facility] [address] [place] [address] Linnea Ramirez APRN [address] [place] [address] Moderate persistent asthma without complication; Anxiety and depression Social History Tobacco Use Types Packs/Day Years [...] any clubs o r organizations such as sikhism groups, unions, fraternal or athletic groups, or [...] Recorded Patient Health Questionnaire-2 Score 0 12/02/2024 [facility] of Occupat ional Health - Occupational Stress [...] place to sleep or slept in a senior living (including now)? No 01/21/2024 PHQ-9 Answer Date [...] in the past 12 m [facility], were you homeless or living in a senior living (including now)? 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 Wish to be (Past 1 Month) No 12/16/2024 12:32 PM EDT Gia Arguello LPN 2. Non-Specific Active Suici good Thoughts (Past 1 Month) No 12/16/2024 12:32 PM EDT Leandro Arguello LPN 6. Suicidal Behavior (Lifetime) No 12:32 PM EDT Gia Arguello LPN documented as of this encounter Miscellaneous Notes * Telephone Encounter - Meaghan Joe, PharmD - 12/19/2024 9:05 PM EDT 1 medication(s) has been approved per protocol. Resent prescription(s) to requested pharmacy due to: Patient requested to switch pharmacies. Confirmed script(s) is cancelled at original pharmacy. documented in this encounter Plan of Treatment Not on file documented as of this encounter Visit Diagnoses Diagnosis Moderate persistent asthma without complication Anxiety and depression documented in this encounter Additional Health Concerns Assessment Noted Time PHQ-9 Depression Total Score: 1 08/06/19 25 3:53 PM EST A fall risk assessment has been complete d for the patient 12/02/2024 1:09 PM EDT A Body Mass Index follow-up plan has been documented for the patient 12/16/2024 1:20 PM EDT documented as of this encounter Care Teams Elevator Attendant Relationship Specialty Start Date End Date Linnea Ramirez APRN [address] [place] [id number] PCP - General Family Medicine 01/28/24 documented as of this encounter
--- OUTSIDE RECORDS SUMMARY | 2024-12-31 14:43 | XMS_ITS | Encounter Summary ---
Author Organization Healthcare Address [address] [place] [address] Care Team Providers Care Neonatal Social Worker Name Role Phone Linnea Ramirez APRN Primary Care Provider [phone] Reason for Visit * Reason Onset Date Comments Med Refill 04/15/2024 Encounter Details Date Type Department Care Team (Late st Contact Info) Description 04/15/2024 Refill [facility] [address] [place] [address] Linnea Ramirez APRN [address] [place] [address] Anxiety and depression Social History Tobacco Use [...] often do you attend chur ch or rastafari services? Never 02/12/2024 Do you belong to any clubs o r organizations such as anabaptist groups, unions, fraternal or athletic groups, or [...] Date Recorded Patient Health Questionnaire-2 Score 0 04/07/2024 [facility] - Occupational Stress Questionnaire Answer [...] medical appointments or from getting medications? No 11/2023 In the past 12 months, has l [...] health care facility (including now)? 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 Not on file documented as of this encounter Plan of Treatment Not on file documented as of this encounter Visit Diagnoses Diagnosis Anxiety and depression documented in this encounter Additional Health Concerns Assessment Noted Time A fall risk assessment has been complete d for the patient 04/07/2024 8:10 AM EDT A Body Mass Index follow-up plan has been documented for the patient 04/07/2024 10:35 AM EDT documented as of this encounter Care Teams Neonatal Social Worker Relationship Specialty Start Date End Date Linnea Ramirez APRN [address] [place] [id number] PCP - General Family Medicine 01/28/24 documented as of this encounter
[2024-12-31 15:44] LABS: Anion Gap 16.5 mEq/L (5-15); Blood Urea Nitrogen 10 mg/dl (7-17); Calcium 9.7 mg/dl (8.4-10.2); Carbon Dioxide 26 mmol/L (22.0-30.0); Chloride 100 mmol/L (98-107); Creatinine,Serum 0.60 mg/dl (0.52-1.04); Estimated Glomerular Filt Rate 127 ml/min (>60); GFR (African American) 154 ML/MIN (>60); Glucose 90 mg/dl (74-100); Potassium 4.5 mmoL/L (3.5-5.1); Sodium 138 mmol/L (136-145)
== END 2024-12-31 23:59 | disposition home or self-care (01) ==
LOC: LAB 14:39
PROVIDERS: PCP Nurse Practitioner Family; Visit Provider Internal Medicine
DX: R42 Dizziness and giddiness (principal)
CPT/HCPCS: 36415; 80048

== ENCOUNTER 2025-02-01 15:22 | Outpatient (CLI) | payer OTHER, MEDICAID, SELFPAY ==
--- OUTSIDE RECORDS SUMMARY | 2024-12-16 12:40 | XMS_ITS | Encounter Summary ---
Author Organization Healthcare Address [address] [place] [address] Care Team Providers Care Taper Printed Circuit Layout Name Role Phone Linnea Ramirez APRN Primary Care Provider [phone] Reason for Visit * Reason Comments Hypoglycemia But increases after eating Restless Legs X 1.5 mo Anxiety Wants to increase do se Encounter Details Date Type Department Care Team (Late st Contact Info) Description 12/16/2024 12:40 PM EDT Office Visit [facility] [address] [place] [address] Linnea Ramirez APRN [address] [place] [address] Hypoglycemia (Primary Dx); Anxiety and [...] How often do you attend chur or anabaptist services? Never 02/12/2024 Do you belong to [...] Recorded Patient Health Questionnaire-2 Score 0 12/02/2024 [facility] Occup[facility] Health - Occupational Stress [...] any time in the past 12 m [facility], were you homeless or living in a fci (including now)? No 07/22/2024 Utilities Answer Date Recorded In the past 12 months has th e [employer], gas, oil, or water [employer] threatened to shut off services in your home? 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
--- OUTSIDE RECORDS SUMMARY | 2025-02-01 15:25 | XMS_ITS | Encounter Summary ---
Author Organization Healthcare Address [address] [place] [address] Care Team Providers Care Field Map Technician Name Role Phone Linnea Ramirez APRN Primary Care Provider Reason for Visit * Reason Onset Date Comments Med Refill 12/16/2024 Encounter Details Date Type Department Care Team (Late st Contact Info) Description 12/16/2024 Refill [facility] [address] [place] [address] Linnea Ramirez APRN [address] [place] [address] Moderate persistent asthma without complication; [...] How often do you attend chur or methodist services? Never 02/12/2024 Do you belong to any clubs o r organizations such as druze groups, unions, fraternal or athletic groups, or [...] Recorded Patient Health Questionnaire-2 Score 0 12/02/2024 [facility]at [facility] - Occupational [...] place to sleep or slept in a long term (including now)? No 01/21/2024 PHQ-9 Answer Date [...] any time in the past 12 m [facility], were you homeless or living in a long term (including now)? 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
--- OUTSIDE RECORDS SUMMARY | 2025-02-01 15:25 | XMS_ITS | Encounter Summary ---
Author Organization Healthcare Address [address] [place] [address] Care Team Providers Care Leadite Heater Name Role Phone Lico Ramireza Hesham DELEON Primary Care Provider [phone] Encounter Details Date Type Department Care Team (Late st Contact Info) Description 01/18/2025 Orders Only [facility] [address] [place] [address] Jana Boles APRN [address] [place] [address] Acute cystitis without hematuria (Primary Dx) Social History Tobacco Use Types [...] often do you attend chur ch or baptist services? Never 02/12/2024 Do you belong to any clubs o r organizations such as hinduism groups, unions, fraternal or athletic groups, or [...] Recorded Patient Health Questionnaire-2 Score 0 12/02/2024 [facility] - Occupational Stress Questionnaire Answer Date [...] to sleep or slept in a senior care (including now)? No 01/21/2024 PHQ-9 Answer Date [...] any time in the past 12 m [facility], were you homeless or living in a senior care (including now)? 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 file Not on file documented as of this encounter Miscellaneous Notes * Progress Notes - Jana Boles, HL7 DEVELOPER - 01/18/2025 9:56 AM EDT Empiric bactrim sent for UTI sx documented in this encounter Plan of Treatment Not on file documented as of this encounter Visit Diagnoses Diagnosis Acute cystitis without hematuria- Primary documented in this encounter Additional Health Concerns Assessment Noted Time PHQ-9 Depression Total Score: 1 08/06/19 25 3:53 PM EST A fall risk assessment has been complete d for the patient 12/02/2024 1:09 PM EDT A Body Mass Index follow-up plan has been documented for the patient 12/16/2024 1:20 PM EDT documented as of this encounter Care Teams Leadite Heater Relationship Specialty Start Date End Date Linnea Ramirez APRN [address] [place] [address] PCP - General Family Medicine 01/28/24 documented as of this encounter
--- OUTSIDE RECORDS SUMMARY | 2025-02-01 15:25 | XMS_ITS | Encounter Summary ---
Author Organization Healthcare Address [address] [place] [address] Care Team Providers Care Hotel Operation Manager Name Role Phone Linnea Ramirez APRN Primary Care Provider [phone] Encounter Details Date Type Department Care Team (Late st Contact Info) Description 10/13/2024 Outside Procedure External Location [address] [place] [address] Provider, Geo [place] Social History Tobacco Use Types Packs/Day Years [...] often do you attend chur ch or jain services? Never 02/12/2024 Do you belong to any clubs o r organizations such as gnosticism groups, unions, fraternal or athletic groups, or [...] Recorded Patient Health Questionnaire-2 Score 0 08/06/2024 [facility] - Occupational Stress Questionnaire Answer [...] place to sleep or slept in a longterm (including now)? No 01/21/2024 PHQ-9 Answer Date [...] in the past [address] [facility], were you homeless or living in a longterm (including now)? 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 Legally authenticated by LAUREN BOURNE 2024-10-13 11:54:15 Procedure Note Provider, Generic [place] - 10/14/2024 [place] [id number] Name: LIZ GONZALEZ Exam Date: 10/13/2024 : 2005 Age 19 years Gender: F Physician: ISABELLE BRITO Facility: [facility] Facility HSV: Outpatient Exam: COMPLETE PELVIS US [...] Thank you for referring LIZ GONZALEZ to [facility]. Legally authenticated by LAUREN BOURNE 2024-10-13 11:54:15 us Generic [place] Provider IMG US PROCEDURES Fi nal Result [...] documented as of this encounter Care Teams Hotel Operation Manager Relationship Specialty Start Date End Date Linnea Ramirez APRN [address] [place] [phone] PCP - General Family Medicine 01/28/24 documented as of this encounter
--- OUTSIDE RECORDS SUMMARY | 2025-02-01 15:25 | XMS_ITS | Encounter Summary ---
Author Organization Healthcare Address [address] [place] [address] Care Team Providers Care Framing Mill Operator Name Role Phone Linnea Ramirez APRN Primary Care Provider [phone] Encounter Details Date Type Department Care Team (Late st Contact Info) Description 03/26/2024 Outside Procedure External Location [address] [place] [address] Provider, Geo [place] Social History Tobacco Use Types Packs/Day Years [...] any clubs o r organizations such as uatsdin groups, unions, fraternal or athletic groups, or [...] Recorded Patient Health Questionnaire-2 Score 1 01/28/2024 [facility] - Occupational Stress Questionnaire Answer Date Recorded [...] in a detention (including now)? 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 Legally authenticated by SELINA SARGENT 2024-03-26 12:45:00 Procedure Note Provider, Geo [place] - 03/26/2024 [place] [address] Name: LIZ GONZALEZ Exam Date: 03/26/2024 : 2005 Age 18 years Gender: F Physician: CARLOS EDUARDO SMITH Facility: [facility] Facility HSV: Outpatient Exam: CHEST 2 VIEWS [...] you for referring LIZ GONZALEZ to [facility]. Legally authenticated by SELINA SARGENT 2024-03-26 12:45:00 Generic [place] Provider IMG XR PROCEDURES Fi nal Result documented in this encounter Visit Diagnoses Not on filedocumented in this encounter Additional Health Concerns Assessment Noted Time A fall risk assessment has been complete d for the patient 02/10/2024 2:03 PM EDT A Body Mass Index follow-up plan has been documented for the patient 02/27/2024 1:22 PM EDT documented as of this encounter Care Teams Framing Mill Operator Relationship Specialty Start Date End Date Linnea Ramirez APRN [address] [place] [address] PCP - General Family Medicine 01/28/24 documented as of this encounter
--- OUTSIDE RECORDS SUMMARY | 2025-02-01 15:25 | XMS_ITS | Encounter Summary ---
Author Organization Healthcare Address [address] [place] [address] Care Team Providers Care Linux System Admin Name Role Phone Linnea Ramirez APRN Primary Care Provider [phone] Encounter Details Date Type Department Care Team (Late st Contact Info) Description 08/03/2024 Outside Procedure External Location [address] [place] [address] Provider, Geo [place] Social History Tobacco Use Types Packs/Day Years [...] often do you attend chur ch or hinduism services? 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 Dictated By: LOVE NAIR Transcribed By: Transcribed On: 08/03/2024 3:09 PM Electronically signed by: LOVE NAIR 08/03/2024 Thank you for referring LIZ GONZALEZ to [facility]. Legally authenticated by KOREY ALEMAN 2024-08-03 15:09:17 Procedure Note Provider, [facility] - 08/04/2024 [place] [address] Name: LIZ GONZALEZ Exam Date: 08/03/2024 : 2005 Age 19 years Gender: F Physician: ISABELLE BRITO Facility: [facility] Facility HSV: Outpatient Exam: COMPLETE PELVIS [...] you for referring LIZ GONZALEZ to [facility]. Legally authenticated by KOREY ALEMAN 2024-08-03 15:09:17 us Generic [place] Provider IMG US PROCEDURES Fi nal Result documented in this encounter Visit Diagnoses Not on filedocumented in this encounter Additional Health Concerns Assessment Noted Time A fall risk assessment has been complete d for the patient 06/16/2024 1:13 PM EST A Body Mass Index follow-up plan has been documented for the patient 07/24/2024 11:14 AM EST documented as of this encounter Care Teams Linux System Admin Relationship Specialty Start Date End Date Linnea Ramirez APRN [address] [place] [id number] PCP - General Family Medicine 01/28/24 documented as of this encounter
--- OUTSIDE RECORDS SUMMARY | 2025-02-01 15:25 | XMS_ITS | Encounter Summary ---
Author Organization Healthcare Address [address] [place] [address] Care Team Providers Care Basket Maker Name Role Phone Linnea Ramirez APRN Primary Care Provider [phone] Encounter Details Date Type Department Care Team [...] week 02/12/2024 How often do you attend [facility] or confucianism services? Never 02/12/2024 Do you belong to any clubs o r organizations such as spiritism groups, unions, fraternal or athletic groups, or [...] Recorded Patient Health Questionnaire-2 Score 0 12/02/2024 [facility] of Occupat ional Health - Occupational [...] place to sleep or slept in a halfway (including now)? No 01/21/2024 PHQ-9 Answer Date [...] any time in the past 12 m [facility], were you homeless or living in a halfway (including now)? No 07/22/2024 Utilities Answer Date Recorded In the past 12 months has e [employer], gas, oil, or water [employer] threatened to shut off services in your home? 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
--- OUTSIDE RECORDS SUMMARY | 2025-02-01 15:25 | XMS_ITS | Encounter Summary ---
Author Organization Healthcare Address [address] 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
--- OUTSIDE RECORDS SUMMARY | 2025-02-01 15:25 | XMS_ITS | Encounter Summary ---
Author Organization Healthcare Address [address] [place] [address] Care Team Providers Care Plastic Parts Fabricator Name Role Phone Linnea Ramirez APRN Primary Care Provider Reason for Visit * Reason Onset Date Comments HCN - Patient Message 11/26/2024 Encounter Details Date Type Department Care Team (Late st Contact Info) Description 11/26/2024 Telephone Obstetrics & Gynecology [address] [place] [address] Alexsandra Berrios RN [address] [place] [address] HCN - Patient Message Social [...] often do you attend chur ch or quaker services? Never 02/12/2024 Do you belong to [...] Recorded Patient Health Questionnaire-2 Score 0 12/02/2024 [facility] Occupat ional Health - [...] place to sleep or slept in a fdc (including now)? No 01/21/2024 PHQ-9 Answer Date [...] any time in the past 12 m [facility], were you homeless or living in a fdc (including now)? 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 Best contact number: [phone] (home) Optimal time of day to reach caller: ANYTIME Additional comments/information from caller: Note: Please do not reply to this message. Follow-up communication and further actions as a result of this message need to be communicated with the patient directly, if the patient is not active onMyChart. If the patient is active on MyChart, they will receive notification of the communication/outcome via [employer]. * Telephone Encounter - Wilson Bassett - 11/26/2024 8:56 AM EDT Same Day Appt/Overbook Request Reason for Call: pt is calling to be seen today , she thinks she may be in the early stages of , and is having some symptoms and is wanting to be seen please Best contact number: [phone] (mobile) Optimal time of day to reach [...] documented as of this encounter Care Teams Plastic Parts Fabricator Relationship Specialty Start Date End Date Linnea Ramirez APRN [address] [place] [phone] PCP - General Family Medicine 01/28/24 documented as of this encounter
--- OUTSIDE RECORDS SUMMARY | 2025-02-01 15:25 | XMS_ITS | Encounter Summary ---
Author Organization Healthcare Address [address] [place] [address] Care Team Providers Care Assembler Semiconductor Name Role Phone Linnea Ramirez APRN Primary Care Provider [phone] Reason for Visit * Reason Onset Date Comments Med Refill 04/15/2024 Encounter Details Date Type Department Care Team (Late st Contact Info) Description 04/15/2024 Refill [facility] [address] [place] [address] Linnea Ramirez APRN [address] [place] [address] Anxiety and depression Social History [...] often do you attend chur ch or gnosticist services? Never 02/12/2024 Do you belong to [...] Recorded Patient Health Questionnaire-2 Score 0 04/07/2024 [facility] - Occupational Stress Questionnaire Answer Date [...] in a longterm (including now)? 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
--- OUTSIDE RECORDS SUMMARY | 2025-02-01 15:25 | XMS_ITS | Clinical Summary ---
Author Organization Healthcare Address [address] [place] [address] Care Team Providers Care Pot Feeder Name Role Phone Linnea Ramirez APRN Primary Care Provider [phone] Allergies Active Allergy Reactions Criticality Noted Date Comments [place] Other - please docum ent in the comment field Low 04/20/2021 Other Unknown - Patient st ates they do not know rxn details Low 04/20/2021 BANANAS Shellfish Allergy Anaphylaxis,Hives,Sh ortness of breath High 04/20/2021 Medications ondansetron ODT (Zofran-ODT) 4 MG disintegrating tablet DISSOLVE 1 TABLET IN MOUTH EVERY 6 HOURS NEEDED FOR NAUSEA 3 Active albuterol 108 (90 Base) MCG/ACT inhalerIndications :Moderate persistent asthma without complication Inhale 1 puff every 6 (six) hours if needed for wheezing or shortness of breath. 1 each 5 4 Active methenamine hippurate (Hiprex) 1 g tabletIndications: Recurrent UTI (urinary tract infection) Take 1 tablet (1 g) by mouth 2 (two) times a day. 60 tablet 11 4 025 Active methocarbamol (Robaxin) 500 MG tabletIndications: Pelvic floor dysfunction Start by taking 1 pill by mouth every night. Slowly increase to 1 pill 2x/day as needed, with a maximum of 2 pills 3x/day. 180 tablet 11 4 Active ergocalciferol 1.25 MG (76446 UT) capsule Take 1 capsule (50,000 Units) by mouth. 5 Active propranolol (Inderal) 10 MG tablet TAKE 1 TABLET (10 MG) BY MOUTH 2 (TWO) TIMES A DAY 180 tablet 2 5 Active Beclomethasone Diprop HFA 40 MCG/ACT aerosolIndications :Moderate persistent asthma without complication Inhale 1 puff 2 times a day. 10.6 g 11 5 Active citalopram (CeleXA) 40 MG tabletIndications: Anxiety and depression Take 1 tablet by mouth daily. 90 tablet 3 5 Active sulfamethoxazole-t rimethoprim (Bactrim DS) 800-160 MG tabletIndications: Acute cystitis without hematuria Take 1 tablet by mouth 2 times a day for 7 days. 14 tablet 5 025 Active Problems Problem Noted Date Diagnosed Date Pelvic floor dysfunction 04/07/2024 Recurrent UTI (urinary tract infection) 02/26/20 24 POTS (postural orthostatic tachycardia syndrome) 01/09/2024 Tachycardia, unspecified 09/24/2022 Asthma 04/20/2021 Anxiety and depression 07/25/2020 Vasovagal syncope 07/22/2020 Resolved Problems Problem Noted Date Diagnosed Date Resolved Date Nocturia 02/26/2024 07/24/2024 Encounters Date Type Department Care Team Description 01/18/2025 Orders Only [facility] Urology [address] [place] [address] Jana Boles APRN Acute cystitis without hematuria (Primary Dx) 12/16/2024 12:40 PM EDT Office Visit [facility] [address] [place] [address] Linnea Ramirez APRN Hypoglycemia (Primary Dx); Anxiety and depression; RLS (restless legs syndrome) 12/16/2024 Refill [facility] [address] [place] [address] Linnea Ramirez APRN Moderate persistent asthma without complication; Anxiety and depression 12/16/2024 Travel 12/09/2024 Travel 12/04/2024 Results Follow-Up Obstetrics & Gynecology [address] [place] [address] Alexsandra Berrios RN 12/02/2024 1:00 PM EDT Office Visit Obstetrics & Gynecology [address] [place] [address] Alexsandra Berrios RN Irregular menstruation, unspecified (Primary Dx); Family planning education, guidance, and counseling 12/02/2024 Travel 11/30/2024 Travel 11/26/2024 Telephone Obstetrics & Gynecology [address] [place] [address] Alexsandra Berrios RN HCN - Patient Message from Last 3 Months Immunizations Immunization Administration [...] week 02/12/2024 How often do you attend [facility] or sikh services? Never 02/12/2024 Do you belong to any clubs o r organizations such as holiness groups, unions, fraternal or athletic groups, or [...] Recorded Patient Health Questionnaire-2 Score 0 12/02/2024 [facility]at [facility] - Occupational Stress [...] any time in the past 12 m [facility], were you homeless or living in a senior care (including now)? 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 file [...] Health Maintenance Due Date Last Done Comments [facility]-/Child/Adol SDOH Screenings 2004 [facility]-Varicella Vaccines (2 of 2 - 2-dose childhood series) 05/02/2011 02/08/2009 [facility]-Pneumococcal Vaccine: Pediatrics (0 to 5 Years) and At-Risk Patients (6 to 49 Years) (1 of 2 - PCV) 2023 AVN-UAFCB-49 Vaccine ( season) 2024 05/22/2021, 11/03/2020, 10/13/2020 [facility]- SDOH [...] 12/02/2024 1:19 PM EDT Irregular menstruation, unspecified CHLAMYDIA TRACHOMATIS DNA BY PCR Routine 02/10/2024 [...] Beta <1 <5 mIU/mL 7:00 PM EDT [facility] Blood Venous blood specimen / Unknown Venipuncture / Unknown 12/02/2024 1:25 PM EDT 12/02/2024 6:31 PM EDT Narrative [facility] - 12/02/2024 7:00 PM [...] cannot be used interchangeably. us Alexsandra Berrios RN LAB BLOOD ORDERABLES Final Res ult [facility] [address] [place] [address] * POCT Urine (12/02/2024 1:19 PM EDT) Pathologist [facility] Urine - Point of Care Negative Negative [...] Unknown 12/02/2024 1:19 PM EDT Alexsandra Berrios RN POINT OF CARE TEST ENTER/EDIT ORDERABLES Final Result * Chlamydia trachomatis DNA by PCR (02/10/2024 2:27 PM EDT) Pathologist [facility] Chlamydia trachomatis DNA PCR Result Not Detected Not Detected 02/13/2024 1:43 PM EDT [facility] Urine Urine specimen / Unknown Non-blood Collection / Unknown 02/10/2024 2:27 PM EDT 02/10/2024 6:34 PM EDT Narrative [facility] - 02/13/2024 1:43 PM EDT This test is performed by the [employer] m2000 instrument for Real Time PCR C. trachomatis and N. gonorrhea. This test is FDA approved for use with endocervical, vaginal, and urine specimens. This test is used for clinical purposes. It should not be regarded as invesigational or for research. The [facility] Clinical Microbiology Laboratory is certified under the Clinical Laboratory Improvement Amendments of 1988 (CLIA-88) as qualified to perform high complexity clinical laboratory testing. us Alexsandra Berrios RN LAB MICROBIOLOGY - GENERAL ORD ERABLES Final Result [facility] [address] [place] [address] * ED HIV 1/2 Antibody/Antigen Screen w/Reflex to HIV 1/2 Differentiation (09/18/2023 3:55 PM EDT) [facility] HIV 1 & 2 Antibody/Antigen Screen Non Reactive Non Reactive 09/18/2023 4:53 PM EDT [facility] Comment:Screening for HIV 1 & 2 antibodies, and P24 antigen is NONREACTIVE. No confirmatory testing is required. Blood Venous blood specimen / Unknown Venipuncture / Unknown 09/18/2023 3:55 PM EDT 09/18/2023 4:11 PM EDT us Marissa Nathan MD LAB BLOOD ORDERABLES Final R esult Performing Organization Address City/[facility]/ZIP Co de Phone Number [facility] [address] [place] [address] * Hepatitis C Antibody - ED (09/18/2023 3:55 PM EDT) [facility] Signature Hepatitis C Antibody Negative Negative 09/18/2023 4:51 PM EDT [facility] Blood Venous blood specimen / Unknown Venipuncture / Unknown 09/18/2023 3:55 PM EDT 09/18/2023 4:11 PM EDT us Marissa Nathan MD LAB BLOOD ORDERABLES Final R esult Performing Organization Address City/[facility] Co de Phone Number [facility]ARE [facility] [address] [place] [address] from Last 3 Months or Most Recently Relevant to Health Maintenance Insurance [facility] MEDICAID Care Teams Pot Feeder Relationship Specialty Start Date End Date Linnea Ramirez APRN [address] [place] [address] PCP - General Family Medicine 01/28/24
--- OUTSIDE RECORDS SUMMARY | 2025-02-01 15:25 | XMS_ITS | Encounter Summary ---
Author Organization Healthcare Address [address] [place] [address] Care Team Providers Care Limited Radiology Technician Name Role Phone Linnea Ramirez APRN Primary Care Provider [phone] Encounter Details Date Type Department Care Team (Late st Contact Info) Description 12/04/2024 Results Follow-Up Obstetrics & Gynecology [address] [place] [address] Alexsandra Berrios RN [address] [place] [address] Social History Tobacco Use Types [...] often do you attend chur ch or restorationism services? Never 02/12/2024 Do you belong to any clubs o r organizations such as scientology groups, unions, fraternal or athletic groups, or [...] Recorded Patient Health Questionnaire-2 Score 0 12/02/2024 [facility] of Occupat ional Health - Occupational [...] in a mcc (including now)? No 01/21/2024 PHQ-9 Answer Date [...] were you homeless or living in a mcc (including now)? 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
--- OUTSIDE RECORDS SUMMARY | 2025-02-01 15:25 | XMS_ITS | Encounter Summary ---
Author Organization Healthcare Address [address] [place] [address] Care Team Providers Care Transition Rn Name Role Phone Linnea Ramirez APRN Primary Care Provider [phone] Encounter Details Date Type Department Care Team [...] How often do you attend [facility] or jainism services? Never 02/12/2024 Do you belong to any clubs o r organizations such as religion groups, unions, fraternal or athletic groups, or [...] Recorded Patient Health Questionnaire-2 Score 0 12/02/2024 [facility] of Occupat ional Health - Occupational [...] In the past 12 months has e [employer], gas, oil, or water [facility] threatened to shut off services in your home? 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
[2025-02-01 20:47] LABS: Free T4 (Free Thyroxine) 1.04 ng/dl (0.78-2.19)
[2025-02-01 20:49] LABS: Free Thyroxine Index 2.7 ug/dL (5.93-13.13); T4 (Thyroxine) 7.8 ug/dl (5.53-11.0); Triiodothryronine (T3) Uptake 34 % (23.5-40.5)
[2025-02-01 21:01] LABS: Thyroid Stimulating Hormone 1.12 uIU/mL (0.465-4.68)
[2025-02-01 21:02] LABS: Thyroid Stimulating Hormone 1.10 uIU/mL (0.465-4.68)
== END 2025-02-01 23:59 | disposition home or self-care (01) ==
LOC: LAB 15:22
PROVIDERS: PCP Nurse Practitioner Family; Visit Provider Nurse Practitioner
DX: R42 Dizziness and giddiness (principal); R53.83 Other fatigue
CPT/HCPCS: 36415; 84436; 84439; 84443; 84479

== ENCOUNTER 2025-02-23 09:24 | Day surgery (SDC) | payer OTHER, MEDICAID, SELFPAY ==
--- OUTSIDE RECORDS SUMMARY | 2025-02-23 09:30 | XMS_ITS | Encounter Summary ---
Author Organization Healthcare Address [address] [place] [address] Care Team Providers Care Block Cleaner Name Role Phone Linnea Ramirez APRN Primary Care Provider [phone] Encounter Details Date Type Department Care Team (Late st Contact Info) Description 03/26/2024 Outside Procedure External Location [address] [place] [address] Provider, Geo [place] Social History Tobacco Use Types Packs/Day Years [...] often do you attend chur ch or anglican services? Never 02/12/2024 Do you belong to any clubs o r organizations such as confucianism groups, unions, fraternal or athletic groups, or [...] Recorded Patient Health Questionnaire-2 Score 1 01/28/2024 [facility] - Occupational Stress Questionnaire Answer Date Recorded [...] a senior living (including now)? 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 Legally authenticated by SELINA SARGENT 2024-03-26 12:45:00 Procedure Note Provider, Geo Ozuna - 03/26/2024 [place] [address] Name: LIZ GONZALEZ Exam Date: 03/26/2024 : 2005 Age 18 years Gender: F Physician: CARLOS EDUARDO SMITH Facility: [facility] Facility HSV: Outpatient Exam: CHEST 2 VIEWS [...] Thank you for referring LIZ GONZALEZ to [facility]. Legally authenticated by SELINA SARGENT 2024-03-26 12:45:00 Generic [place] Provider IMG XR PROCEDURES Fi nal Result documented in this encounter Visit Diagnoses Not on filedocumented in this encounter Additional Health Concerns Assessment Noted Time A fall risk assessment has been complete d for the patient 02/10/2024 2:03 PM EDT A Body Mass Index follow-up plan has been documented for the patient 02/27/2024 1:22 PM EDT documented as of this encounter Care Teams Block Cleaner Relationship Specialty Start Date End Date Linnea Ramirez APRN [address] [place] [address] PCP - General Family Medicine 01/28/24 documented as of this encounter
--- OUTSIDE RECORDS SUMMARY | 2025-02-23 09:30 | XMS_ITS | Encounter Summary ---
Author Organization Healthcare Address [address] 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
--- OUTSIDE RECORDS SUMMARY | 2025-02-23 09:30 | XMS_ITS | Encounter Summary ---
Author Organization Healthcare Address [address] [place] [address] Care Team Providers Care Roll Coating Machine Operator Name Role Phone Linnea Ramirez APRN Primary Care Provider [phone] Reason for Visit * Reason Onset Date Comments HCN - Patient Message 11/26/2024 Encounter Details Date Type Department Care Team (Late st Contact Info) Description 11/26/2024 Telephone Obstetrics & Gynecology [address] [place] [address] Alexsandra Berrios RN [address] [place] [address] HCN - Patient Message Social [...] often do you attend chur ch or cheondoism services? Never 02/12/2024 Do you belong to any clubs o r organizations such as jehovah's witness groups, unions, fraternal or athletic groups, or [...] Recorded Patient Health Questionnaire-2 Score 0 12/02/2024 [facility] Occupat ional Health - Occupational [...] place to sleep or slept in a jail (including now)? No 01/21/2024 PHQ-9 Answer Date [...] any time in the past 12 m [facility], were you homeless or living in a jail (including now)? 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 Best contact number: [phone] (home) Optimal time of day to reach caller: ANYTIME Additional comments/information from caller: Note: Please do not reply to this message. Follow-up communication and further actions as a result of this message need to be communicated with the patient directly, if the patient is not active onMyChart. If the patient is active on MyChart, they will receive notification of the communication/outcome via [employer]. * Telephone Encounter - Wilson Bassett - 11/26/2024 8:56 AM EDT Same Day Appt/Overbook Request Reason for Call: pt is calling to be seen today , she thinks she may be in the early stages of , and is having some symptoms and is wanting to be seen please Best contact number: [phone] (mobile) Optimal time of day to reach [...] documented as of this encounter Care Teams Roll Coating Machine Operator Relationship Specialty Start Date End Date Linnea Ramirez APRN [address] [place] [address] PCP - General Family Medicine 01/28/24 documented as of this encounter
--- OUTSIDE RECORDS SUMMARY | 2025-02-23 09:30 | XMS_ITS | Encounter Summary ---
Author Organization Healthcare Address [address] [place] [address] Care Team Providers Care Reservation Clerk Name Role Phone Linnea Ramirez APRN Primary Care Provider [phone] Encounter Details Date Type Department Care Team (Late st Contact Info) Description 08/03/2024 Outside Procedure External Location [address] [place] [address] Provider, Geo [place] Social History Tobacco Use Types Packs/Day Years [...] often do you attend chur ch or orthodox services? 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 Legally authenticated by KOREY ALEMAN 2024-08-03 15:09:17 Procedure Note Provider, [facility] - 08/04/2024 [place] [address] Name: LIZ GONZALEZ Exam Date: 08/03/2024 : 2005 Age 19 years Gender: F Physician: ISABELLE BRITO Facility: [facility] Facility HSV: Outpatient Exam: COMPLETE PELVIS [...] LOVE NAIR 08/03/2024 Thank you for referring ILZ GONZALEZ to [facility]. Legally authenticated by KOREY ALEMAN 2024-08-03 15:09:17 us Generic Am[place] Provider IMG US PROCEDURES Fi nal Result documented in this encounter Visit Diagnoses Not on filedocumented in this encounter Additional Health Concerns Assessment Noted Time A fall risk assessment has been complete d for the patient 06/16/2024 1:13 PM EST A Body Mass Index follow-up plan has been documented for the patient 07/24/2024 11:14 AM EST documented as of this encounter Care Teams Reservation Clerk Relationship Specialty Start Date End Date Linnea Ramirez APRN [address] [place] [address] PCP - General Family Medicine 01/28/24 documented as of this encounter
--- OUTSIDE RECORDS SUMMARY | 2025-02-23 09:30 | XMS_ITS | Encounter Summary ---
Author Organization Healthcare Address [address] [place] [address] Care Team Providers Care Street Contractor Name Role Phone Linnea Ramirez APRN Primary Care Provider [phone] Encounter Details Date Type Department Care Team (Late st Contact Info) Description 10/13/2024 Outside Procedure External Location [address] [place] [address] Provider, Geo [place] Social History Tobacco Use Types Packs/Day Years [...] Recorded Patient Health Questionnaire-2 Score 0 08/06/2024 [facility] - Occupational Stress Questionnaire Answer Date [...] any time in the past 12 m [facility], were you homeless or living in [...] 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 Legally authenticated by LAUREN BOURNE 2024-10-13 11:54:15 Procedure Note Provider, Generic [place] - 10/14/2024 [id number] Name: LIZ GONZALEZ Exam Date: 10/13/2024 : 2005 Age 19 years Gender: F Physician: ISABELLE BRITO Facility: [facility] Facility HSV: Outpatient Exam: COMPLETE PELVIS [...] to [facility]. Legally authenticated by LAUREN BOURNE 2024-10-13 11:54:15 us Generic [place] Provider IMG US PROCEDURES Fi nal Result [...] documented as of this encounter Care Teams Street Contractor Relationship Specialty Start Date End Date Linnea Ramirez APRN [address] [place] [address] PCP - General Family Medicine 01/28/24 documented as of this encounter
--- OUTSIDE RECORDS SUMMARY | 2025-02-23 09:30 | XMS_ITS | Clinical Summary ---
Author Organization Healthcare Address [address] [place] [address] Care Team Providers Care [employer] Labourer Name Role Phone Linnea Ramirez APRN Primary Care Provider [phone] Allergies Active Allergy Reactions Criticality Noted Date Comments [place] Other - please docum ent in the [...] tablet 11 4 Active ergocalciferol 1.25 MG (71382 UT) capsule Take 1 capsule (50,000 Units) [...] Department Care Team Description 01/18/2025 Orders Only [facility] [address] [place] [address] Jana Boles APRN Acute cystitis without hematuria (Primary Dx) 12/16/2024 12:40 PM EDT Office Visit [facility] [address] [place] [address] Linnea Ramirez APRN Hypoglycemia (Primary Dx); Anxiety and depression; RLS (restless legs syndrome) 12/16/2024 Refill [facility] [address] [place] [address] Linnea Ramirez APRN Moderate persistent asthma without complication; Anxiety and depression 12/16/2024 Travel 12/09/2024 Travel 12/04/2024 Results Follow-Up [facility] [address] [place] [address] Alexsandra Berrios RN 12/02/2024 1:00 PM EDT Office Visit [facility] [address] [place] [address] Alexsandra Berrios RN Irregular menstruation, unspecified (Primary Dx); Family planning education, guidance, and counseling 12/02/2024 Travel 11/30/2024 Travel 11/26/2024 Telephone Obstetrics & Gynecology [address] [place] [address] Alexsandra Berrios RN HCN - Patient Message [...] Problems Maternal Grandmother Conversions - Other Mother Amalai Rhoades gastroin testinal disorder Heart disease Mother Amalia Rhoades Miscarriages / Stillbirths Mother Amalia Rhoades POTS Mother Amalia Soodz No Known Problems Mother's Brother 1 No Known Problems Mother's Brother 2 No Known Problems Mother's Sister Arthritis Paternal Grandfather Fady Gonzalez Heart disease Paternal Grandmother Divya Gonzalze No Known Problems Sister 1 No Known [...] week 02/12/2024 How often do you attend [facility] or [facility] services? Never 02/12/2024 Do you belong to [...] Recorded Patient Health Questionnaire-2 Score 0 12/02/2024 [facility] - [...] place to sleep or slept in a chcf (including now)? No 01/21/2024 PHQ-9 Answer Date [...] in the past 12 m [facility], were you homeless or living in a chcf (including now)? 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 [...] Years) (1 of 2 - PCV) 2023 [facility]- SDOH Screenings 01/19/2025 [facility]-Adult SDOH Screenings 01/19/2025 07/22/2024 [facility]-Chlamydia and Gonorrhea Screening 02/09/2025 02/10/2024, 02/10/2024, 07/22/2023, Additional history exists [id number] Vaccine ( season) 2025 05/22/2021, 11/03/2020, 10/13/2020 [facility]-Influenza Vaccine (#1) 02/15/202503/18, 10/05/2023, 03/07/2023, Additional [...] Beta <1 <5 mIU/mL 7:00 PM EDT [facility] Blood Venous blood specimen / Unknown Venipuncture / Unknown 12/02/2024 1:25 PM EDT 12/02/2024 6:31 PM EDT Narrative [facility] - 12/02/2024 7:00 PM EDT [...] RN LAB BLOOD ORDERABLES Final Res ult [facility] [address] [place] [address] * POCT Urine (12/02/2024 1:19 PM EDT) Pathologist [facility] Urine - Point of Care Negative Negative [...] by PCR (02/10/2024 2:27 PM EDT) Pathologist [facility] Chlamydia trachomatis DNA PCR Result Not Detected Not Detected 02/13/2024 1:43 PM EDT [facility] Urine Urine specimen / Unknown Non-blood Collection / Unknown 02/10/2024 2:27 PM EDT 02/10/2024 6:34 PM EDT Narrative [facility] - 02/13/2024 1:43 PM EDT This test is performed by the [employer]Sync m2000 instrument for Real Time PCR C. trachomatis and N. gonorrhea. This test is FDA approved for use with endocervical, vaginal, and urine specimens. This test is used for clinical purposes. It should not be regarded as invesigational or for research. The [facility] is certified under the Clinical Laboratory Improvement Amendments of 1988 (CLIA-88) as qualified to perform high complexity clinical laboratory testing. us Alexsandra Berrios RN LAB MICROBIOLOGY - GENERAL ORD ERABLES Final Result [facility] [address] [place] [address] * ED HIV 1/2 Antibody/Antigen Screen w/Reflex to HIV 1/2 Differentiation (09/18/2023 3:55 PM EDT) [facility] HIV 1 & 2 Antibody/Antigen Screen Non Reactive Non Reactive 09/18/2023 4:53 PM EDT [facility] Comment:Screening for HIV 1 & 2 antibodies, and P24 antigen is NONREACTIVE. No confirmatory testing is required. Blood Venous blood specimen / Unknown Venipuncture / Unknown 09/18/2023 3:55 PM EDT 09/18/2023 4:11 PM EDT us Marissa Nathan MD LAB BLOOD ORDERABLES Final R esult Performing Organization Address City/[facility]/ZIP Co de Phone Number [facility]ALTH[facility] [address] [place] [address] * Hepatitis C Antibody - ED (09/18/2023 3:55 PM EDT) [facility] Hepatitis C Antibody Negative Negative 09/18/2023 4:51 PM EDT [facility] Blood Venous blood specimen / Unknown Venipuncture / Unknown 09/18/2023 3:55 PM EDT 09/18/2023 4:11 PM EDT us Marissa Nathan MD LAB BLOOD ORDERABLES Final R esult Performing Organization Address City/[facility] Co de Phone Number [facility]ALTHCARE [facility] [address] [place] [address] from Last 3 Months or Most Recently Relevant to Health Maintenance Insurance [facility] MEDICAID Care Teams [employer] Labourer Relationship Specialty Start Date End Date Linnea Ramirez APRN [address] [place] [address] PCP - General Family Medicine 01/28/24
--- OUTSIDE RECORDS SUMMARY | 2025-02-23 09:30 | XMS_ITS | Encounter Summary ---
Author Organization Healthcare Address [address] [address] Care Team Providers Care Die Casting Machine Setter Name Role Phone Linnea Ramirez APRN Primary Care Provider [phone] Encounter Details Date Type Department Care Team (Late st Contact Info) Description 01/18/2025 Orders Only [facility] [address] [place] [address] Jana Boles APRN [address] [place] [address] Acute cystitis without hematuria (Primary [...] often do you attend chur ch or pentecostal services? Never 02/12/2024 Do you belong to any clubs o r organizations such as christian groups, unions, fraternal or athletic groups, or [...] Recorded Patient Health Questionnaire-2 Score 0 12/02/2024 [facility] Questionnaire Answer Date [...] time in the past 12 m [facility], were you homeless or living in a assisted (including now)? 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
--- OUTSIDE RECORDS SUMMARY | 2025-02-23 09:30 | XMS_ITS | Encounter Summary ---
Author Organization Healthcare Address [address] [place] [address] Care Team Providers Care Fighting Vehicle Infantryman Name Role Phone Linnea Ramirez APRN Primary Care Provider [phone] Reason for Visit * Reason Onset Date Comments Med Refill 04/15/2024 Encounter Details Date Type Department Care Team (Late st Contact Info) Description 04/15/2024 Refill [facility] [address] [place] [address] Linnea Ramirez APRN [address] [place] [address] Anxiety and depression Social History [...] often do you attend chur ch or mormonism services? Never 02/12/2024 Do you belong to [...] Recorded Patient Health Questionnaire-2 Score 0 04/07/2024 [facility] - Occupational Stress Questionnaire Answer Date [...] in a prison (including now)? 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
[2025-02-23 09:45] VITALS: BMI 26.9
[2025-02-23 09:46] VITALS: BP 142/79; PULSE 83; RESP 17; TEMP 36.4; O2SAT 100
--- NOTE | 2025-02-23 12:30 | HMH.PROCNOTE ---
[facility] Procedure Note Date: 02/23/25 Time: 10:15 Procedure Note:: TEST: Upright Tilt Table Test REQUESTING PHYSICIAN: Duncan Palomino MD INDICATION: syncope, tachycardia MEDS: Propranolol, fludrocortisone, Celexa, albuterol inhaler PRE-TEST VITAL SIGNS (SUPINE): BP 133/73, HR 78, O2 sats 100% TEST SUMMARY: Patient was prepared per protocol. Patient was then tilted into the upright position at 70 degrees for a total of 30 minutes with the test being terminated at the end of the 30 minute test. She had no syncope or near syncope. She complained of feeling like blood was pooling in her feet and minor pressure in her head. Her lowest BP was 119/78 and maximum BP was 136/84. Minimum HR during test was 97 bpm and maximum HR was 107 bpm after 26 minutes. Her heart rhythm was sinus rhythm throughout the test. O2 sats remained 98-100% throughout the test. COMPLICATIONS: None CONCLUSION: This test is a negative tilt table test with no significant changes in BP and/or HR, with no significant symptoms induced.
== END 2025-02-23 11:17 | disposition home or self-care (01) ==
PROVIDERS: PCP Nurse Practitioner Family; Visit Provider Internal Medicine
DX: R55 Syncope and collapse (principal); R00.0 Tachycardia, unspecified; Z87.891 Personal history of nicotine dependence; Z79.1 Long term (current) use of non-steroidal anti-inflammatories (NSAID); Z79.52 Long term (current) use of systemic steroids; Z79.899 Other long term (current) drug therapy; Z82.49 Family history of ischemic heart disease and other diseases of the circulatory system
CPT/HCPCS: 93660